=== PATIENT | male | born 1945 | race Caucasian/White ===

== ENCOUNTER → 2020-02-17 14:58 | Outpatient (ROUT) | payer OTHER, SELFPAY ==
[2020-02-17 16:35] LABS: Aspartate Aminotransferase 32 IU/L (17-59); BUN Creatinine Ratio 23.6 (6-22); Blood Urea Nitrogen 17 mg/dL (9-20); Calcium 9.5 mg/dL (8.4-10.2); Carbon Dioxide 25 mmol/L (22-32); Chloride 100 mmol/L (98-107); Cholesterol 118 mg/dL (140-199); Estimated Glomerular Filt Rate > 60.0 mL/min (>60); Glucose 91 mg/dL (80-110); HDL Cholesterol 62 mg/dL (40-60); HEMOLYSIS 20 (0-50); LDL Cholesterol Calculated 42 mg/dL (<100); Potassium 4.6 mmol/L (3.4-5.1); Sodium 135 mmol/L (137-145); Triglycerides 68 mg/dL (35-150)
== END ==
PROVIDERS: Visit Provider Internal Medicine
DX: I10 Essential (primary) hypertension (principal)
CPT/HCPCS: 80048; 80061; 84450

== ENCOUNTER → 2020-12-30 16:00 | Outpatient (CLI) | payer OTHER, SELFPAY ==
--- NOTE | 2020-12-30 | DI.RAD.S_ITS ---
PROCEDURE: XR ANKLE RT MIN 3V INDICATIONS: CRUSH INJURY TECHNIQUE: 3 views of the ankle were acquired. COMPARISON: None. FINDINGS: Bones: No fractures or dislocations. Ankle mortise is normally aligned. No suspicious bony lesions. Soft tissues: No tibiotalar joint effusion. Achilles tendon appears normal. IMPRESSION: No acute finding. Dictated by: Timi Uribe M.D. on 12/30/2020 at 16:44 Approved by: Timi Uribe M.D. on 12/30/2020 at 16:45
--- NOTE | 2020-12-30 | DI.RAD.S_ITS ---
PROCEDURE: XR TIBIA FUBULA RT 2V INDICATIONS: CRUSH INJURY TECHNIQUE: 2 views of the tibia and fibula were acquired. COMPARISON: None. FINDINGS: Bones: Four views of the tibia and fibula were performed and demonstrate no fracture or dislocation. Mild degenerative changes of the knee are seen Soft tissues: No suspicious soft tissue calcifications or masses. Vasculature has atherosclerotic calcifications. IMPRESSION: No acute abnormality of the right tibia or fibula. Dictated by: Moisés Aguirre M.D. on 12/30/2020 at 16:52 Approved by: Moisés Aguirre M.D. on 12/30/2020 at 16:54
== END ==
PROVIDERS: PCP Internal Medicine; Referring Provider Internal Medicine; Visit Provider Internal Medicine
DX: X58.XXXA Exposure to other specified factors, initial encounter (principal); S97.01XA Crushing injury of right ankle, initial encounter
CPT/HCPCS: 73590; 73610

== ENCOUNTER 2022-06-19 13:30 | Outpatient (RCR) | payer OTHER, SELFPAY ==
--- NOTE | 2022-05-22 17:00 | ST.OPIE ---
Visit Care Team Role Provider Type Krishna Reddy MD Family Provider Physician Primary Care Provider Specialty: Internal Medicine Address: [address] [place] [address], [address] Email: Alcides Huitron MD Attending Provider Physician Referring Provider Specialty: Ear, Nose, Throat Address: [address] [place] [address], [address] Email: [email or web address] Speech-Language Pathology Initial Evaluation AUTOMATED WEAVER Voice Resonance Evaluation Start: 05/22/22 15:04 Freq: Status: Active Protocol: Document 05/22/22 15:05 LNK (Rec: 05/22/22 15:35 LNK [id number]) Voice and Resonance Assessment Session Time Visit Start Time 13:30 Visit Stop Time 14:30 Total Visit Minutes 60 Visit Information Visit Number 1 Plan of Care Dates 05/22/22-08/20/22 Next Note Type Next Note Type Treatment Note Referral Referring Physician RICKEY Pelletier Reason for Referral voice/Parkinson's Disease Setting Setting Outpatient Care Patient History Patient History Pt was seen for a voice evaluation at the referral of Dr. Huitron, ENT. Pt c/o progressively weaker voice over the past year. He was recently diagnosed with Parkinson's Disease. Pt's reported that she frequently needs her to repeat himself as she cannot hear what he is saying. Vision Comments Wears glasses Occupational Status Occupation Status Retired Previous Therapy Previous Speech-Language Therapy No Oral Motor Assessment Source: [employer] (JEANNA). Oral-Motor Eval Completed No Subjective Subjective Pt was accompanied by his , Migdalia. - Laryngeal Performance S/Z Ratio Reduced Laryngeal Function Relative to Yes Respiration CAPE-V Overall Severity 41 Roughness 10 Breathiness 78 Strain 10 Pitch 20 Loudness 61 Normal Resonance? Yes Other Features Observed Flat Affect Maximum Phonation Time MPT Norms: Women (15-25) Men (25-35) Loudness (50-60 dB); Speaking Rate: Oral Reading of Sentences (190 Words Per Minute); Oral Reading of Paragraphs (160-170 WPM); Speaking Rate in Conversation (150-250 WPM) Maximum Phonation Time 11.37 Maximum Phonation Time Reduced Maximum Phonation Time Comments MPT was reduced relative to normal secondary to increased air flow leading to breathiness. Increased respiratory rate when speaking Jitter/Shimmer Norms: Jitter (Less than or equal to 1.040% - Frequency) Norms: Shimmer (Less than or equal to 3.810% - Amplitude) Jitter 1..6 Shimmer 9.0 Muscle Tension Assessment Muscle Tension Assessment None Tongue Base Tension Tongue Base Tension w/ Voicing Yes Tongue Base Tension at Rest Yes Breath Support Breath Support At Rest Mixed Breath Support Sustained Phonation Thoracic Breath Support Conversation Thoracic Speaks on Room Air Yes Postural Alignment Stance Balanced Shoulders Symmetrical Voice Pitch Range Norms: Women (100-300 Hz) Men (70-250 Hz) Fundamental Frequency Norms: Women (Mean: 225 Hz; Range: 155-334 Hz) Men ( Mean: 128 Hz; Range: 85-196 Hz) Voice Pitch Mildly Low Voice Loudness Moderately Soft/Quiet Voice Phonatory-based Quality Breathy Fundamental Frequency 120.5 Hz Paradoxical Vocal Fold Movement No Indications Resonance Other Observations Inadequate Breath Support Therapeutic Techniques Therapy Tactics Increase Loudness Other Tactics Recommend LSVT LOUD therapy program Findings Findings Mild-Moderate Impairment Voice/Resonance Assessment Assessment Pt presented with diminished vocal quality and volume, likely secondary to PD. Pt was able to increase loudness to audible level. His remarked she could hear him. Pt noted I feel like I am shouting, which ids typical for PD patients when compared to their habitual voice. Introduced LSVT LOUD and provided written information about thoe treatment program. Am recommending LSVT LOUD for the pt to better enable speaking volume. Am also recommending pt investigate Song Shine at the [facility]. Song Shine is a 8 week group vocal activity of singing and increasing the PD pt's intonation and vocal range, among other benefits (e .g., socialization). Encouraged the pt to contact the [facility] in [place] for Song Shine start date. Prognosis Rehabilitation Potential Good - Recommendations Treatment Recommended Yes: LSVT LOUD Therapy Recommendations As pt is relatively early in PD diagnosis, his prognosis for improvement is excellent. Short Term Goals Pt will enroll and participate in the LSVT LOUD program with certified [facility] AUTOMATED WEAVER. Medical referral to program needed to enroll. Patient/Caregiver Education Patient/Family Education Described results of evaluation,Patient Understanding,Family Understanding,Family Needs More Info
--- NOTE | 2022-05-22 17:02 | ST.OPPOC ---
Physical, Occupational & Speech Therapy At [facility] Visit Care Team Role Provider Type Krishna Reddy MD Family Provider Physician Primary Care Provider Address: [address] [place] [address], [address] Alcides Huitron MD Attending Provider Physician Referring Provider Address: [address] [place] [address], [address] Speech Pathology Plan of Care Plan of Care Dates 05/22/22-08/20/[address] Alcides Huitron, ENT Patient History Pt was seen for a voice evaluation at the referral of Dr. Huitron ENT. Pt c/o progressively weaker voice over the past year. He was recently diagnosed with Parkinson's Disease. Pt's reported that she frequently needs her to repeat himself as she cannot hear what he is saying. ASSESSMENT: Pt presented with diminished vocal quality and volume, likely secondary to PD. Pt was able to increase loudness to audible level. His remarked she could hear him. Pt noted I feel like I am shouting, which ids typical for PD patients when compared to their habitual voice. Introduced LSVT LOUD and provided written information about thoe treatment program. Am recommending LSVT LOUD for the pt to better enable speaking volume. Am also recommending pt investigate Song Shine at the [facility]. Song Shine is a 8 week group vocal activity of singing and increasing the PD pt's intonation and vocal range, among other benefits (e.g., socialization). Encouraged the pt to contact the [facility] in [place] for Song Shine start date. PLAN OF CARE: Pt will enroll and participate in the LSVT LOUD program with certified [facility] QUALITY ASSURANCE SUPERVISOR FINAL. Medical referral to program needed to enroll. As pt is relatively early in PD diagnosis, his prognosis for improvement is excellent. [ Electronically Signed by: Shyla Ventura, QUALITY ASSURANCE SUPERVISOR FINAL 05/22/22 6408 If you are in agreement with this Plan of Care, please return a signed and dated copy. I have reviewed this Plan of Care and certify that the skilled therapy services above are required to meet the patient?s needs. Physician Signature Date Printed Name and Credentials Clinical Instructor Signature Printed Name and Credentials
--- NOTE | 2022-06-19 16:16 | ST.OPTN ---
Visit Care Team Role Provider Type Krishna Reddy MD Family Provider Physician Primary Care Provider Address: [address] [place] [address], [address] Alcides Huitron MD Attending Provider Physician Referring Provider Address: [address] [place] [address], [address] ACTIVITY AIDE Treatment Note ACTIVITY AIDE Treatment Note Start: 05/22/22 15:04 Freq: Status: Active Protocol: Document 06/19/22 16:03 LNK (Rec: 06/19/22 16:16 LNK [id number]) Speech Pathology Treatment Note Session Time Visit Start Time 13:30 Visit Stop Time 14:25 Total Visit Minutes 55 Visit Information Visit Number 2 Plan of Care Dates 05/22/22-08/20/22 Setting Treatment Setting Outpatient Care Visit Type Note Type Treatment Note Next Note Type Next Note Type Treatment Note General Information Patient History Pt was seen for a voice evaluation at the referral of Dr. Huitron, ENT. Pt c/o progressively weaker voice over the past year. He was recently diagnosed with Parkinson's Disease. Pt's reported that she frequently needs her to repeat himself as she cannot hear what he is saying. Subjective Observations/Patient Presentation Pt presented with an improved vocal quality and volume My meds kicked in!, the pt noted . Significant change observed . Reviewed exercises prescribed last session. Chief Complaint(s) Voice Rehab Expectation/Goals: Patient Goals Maintain vocal quality and volume given PD diagnosis. Patient Knowledge/Awareness of ACTIVITY AIDE Role Excellent in Treatment Parent/Caretake Knowledge/Awareness of Excellent ACTIVITY AIDE Role in Treatment Patient/Caregiver Compliance with Home Good Exercise Program Objective Short Term Goals Pt will enroll and participate in the LSVT LOUD program with certified [facility] ACTIVITY AIDE. Medical referral to program needed to enroll. Treatment Activities Pt reported that partaking in LOUD or BIG would be financially difficult given copay of $30.00/session. Targeted breathing anatomy and physiology and abdominal breath control. With using abdominal breathing and activating abdominal muscles for MPT, pt increased MPT x6s. Reading aloud without abd breathing was slightly rogh and breathy. Using abd breading, the pt's vocal quality improved/cleared. Pt provided with exercises to target abd breathing and projection of speech while at home with his . pt assured that he does not sound like he is shouting to his or me. Assessment Patient Response to Treatment Good Impairments Identified Voice Progress Towards Goals Good Progress Assessment of Improvement Big change in pt's voice due to medication's effect. Patient/Caregiver Understanding Excellent Plan Comment f/u with pt in 4 weeks Length of Session 60 Minutes Therapeutic Contents Oral Motor Training,Voice Training Provided Patient/Caregiver Instruction Home Exercise Program,Plan of Care,Questions/Concerns
--- NOTE | 2022-09-19 17:01 | ST.OPDS ---
Visit Care Team Role Provider Type Krishna Reddy MD Family Provider Physician Primary Care Provider Address: [address] [place] [address], [id number] Alcides Huitron MD Attending Provider Physician Referring Provider Address: [address] [place] [address], [id number] CARBONATION EQUIPMENT TENDER Treatment Note CARBONATION EQUIPMENT TENDER Treatment Note Start: 05/22/22 15:04 Freq: Status: Active Protocol: Document 09/19/22 16:59 LNK (Rec: 09/19/22 17:00 LNK [id number]) Speech Pathology Treatment Note Setting Treatment Setting Outpatient Care Visit Type Note Type Discharge Summary General Information Patient History Pt was seen for a voice evaluation at the referral of Dr. Huitron, ENT. Pt c/o progressively weaker voice over the past year. He was recently diagnosed with Parkinson's Disease. Pt's reported that she frequently needs her to repeat himself as she cannot hear what he is saying. Subjective Observations/Patient Presentation Pt presented with an improved vocal quality and volume My meds kicked in!, the pt noted . Significant change observed . Reviewed exercises prescribed last session. Rehab Expectation/Goals: Patient Goals Maintain vocal quality and volume given PD diagnosis. Objective Treatment Activities pt has not been seen for therapy since 06/19/22. Will discharge at this time
== END 2022-09-20 11:45 | disposition home or self-care (01) ==
LOC: SP 13:30
PROVIDERS: Absent Provider Internal Medicine; Family Provider Internal Medicine; PCP Internal Medicine; Referring Provider Otolaryngology; Visit Provider Otolaryngology
DX: R49.0 Dysphonia (principal); G20 Parkinson's disease
CPT/HCPCS: 92507; 92520; 92524

== ENCOUNTER 2022-09-17 14:30 | Outpatient (RCR) | payer OTHER, SELFPAY ==
--- NOTE | 2022-06-29 16:00 | PT.OIE ---
Current Diagnoses Parkinson's disease (06/29/22) Unsteadiness on feet (06/29/22) Other abnormalities of gait and mobility (06/29/22) Repeated falls (06/29/22) Visit Care Team Role Provider Type Krishna Reddy MD Family Provider Physician Primary Care Provider Specialty: Internal Medicine Address: [address] [place] [address], [address] Email: Alcides Huitron MD Attending Provider Physician Referring Provider Specialty: Ear, Nose, Throat Address: [address] [place] [address], [address] Email: [email or web address] Physical Therapy Initial Evaluation PT-OP-A Visit Information Start: 06/29/22 16:47 Freq: Status: Active Protocol: Document 06/29/22 15:15 DCW (Rec: 06/29/22 16:53 DCW [id number]) Out-Patient Physical Therapy Visit Information Visit Information Visit Type Initial Evaluation Visit Start Time 15:15 Visit Stop Time 16:00 Total Visit Minutes 45 Visit Number 1 Number of PAPER HANGER Visits 0 Evaluation Information Evaluation Date 06/29/22 PT-OP-B Current Condition Start: 06/29/22 16:47 Freq: Status: Active Protocol: Document 06/29/22 15:15 DCW (Rec: 07/02/22 09:40 DCW [id number]) Current Condition History of Current Condition Onset Date Multi-year history Current Complaints Falls, imbalance, weakness History of Current Condition Pt is a 76 year old male presenting with a multi-year history of imbalance, falls, and weakness who is three months s/p official diagnosis of Parkinson's disease. Pt reports he has fallen five times over the last year, four of which have been within the past three months, but notes that none of the falls have been serious. Pt uses SPC and FWW for ambulation most of the time, but finds them annoying, tries to get around without it, but uses his ADs for any kind of distance. Pt reports he was struggling both with dizziness and initiating movement, but has benefitted greatly from starting L-dopa. Treatment Goals Patient/Caregiver Goals I want to get more strength in my legs and get better balance. PT-OP-C Subjective Start: 06/29/22 16:47 Freq: Status: Active Protocol: Document 06/29/22 15:15 DCW (Rec: 06/29/22 16:53 DCW [id number]) OP-PT Subjective Patient Comments Patient Comments The cane is annoying, so I try to get along without it. Patient Reported Progress Same Patient Questionnaires Dizziness Handicap Inventory DHI Score 68% PT-OP-D Balance Start: 06/29/22 16:47 Freq: Status: Active Protocol: Document 06/29/22 15:15 DCW (Rec: 06/29/22 16:53 DCW [id number]) OP-PT Balance Assessment Sitting Balance Static Sitting Balance Ability Normal Dynamic Sitting Balance Ability Normal Standing Balance Static Standing Balance Ability Fair Dynamic Standing Balance Ability Fair Balance Tests Rodriguez Balance Test Rodriguez Balance Test Score 36/56 Rodriguez Impairment Rating 20 to 39% Impaired (Score 34- 44) Rodriguez Balance Assessment Evaluation Sitting to Standing Ability Independent w/Hands Unsupported Stance Supervision- 2 minutes Sitting Unsupported, Feet on Floor Safely- 2 minutes Standing to Sitting Ability Assist, Use Legs on Chair Transfer Ability Safely, Hand Use Unsupported Stance- Eyes Closed 3 seconds Unsupported Stance- Eyes Open Independent, <30 seconds Reaching Forward Standing Safely, 5 inches Pick- Up Object From Floor Supervision Look Behind Shoulder - Standing Turns Sideways Only Turning 360 Degrees Turns slowly, but safely Unsupported Stance, Alternating Feet on 4 Steps w/Supervision Stair Unsupported Tandem Stance Holds Tandem- 30 seconds Unilateral Leg Stance Lifts Leg/Holds > 3 secs Total Score Rodriguez Total Score (out of 56 points) 36 Rodriguez Impairment Rating 20 to 39% Impaired (Score 34- 44) Ellis Fall Scale Copyright Permission PT-OP-E Functional Tests Start: 06/29/22 16:47 Freq: Status: Active Protocol: Document 06/29/22 15:15 DCW (Rec: 06/29/22 16:53 DCW [id number]) Functional Tests Dynamic Gait Index (DGI) Score 17/24 DGI Impairment Rating 20 to <40% Impaired (Score 15- 19) Timed Up and Go (TUG) Score 22.16 Comments Three-trial average (26.31, 21 .67, 18.49) TUG Impairment Rating 100% Impaired (Score 20) PT-OP-M Strength Start: 06/29/22 16:47 Freq: Status: Active Protocol: Document 06/29/22 15:15 DCW (Rec: 06/29/22 16:53 DCW [id number]) Hip Strength Hip Manual Muscle Testing Right Flexion (L2) 4 Good Extension (S1) 4- Good- Abduction 4- Good- Adduction 4 Good External Rotation 4 Good Internal Rotation 4 Good Left Flexion (L2) 4- Good- Extension (S1) 4+ Good+ Abduction 4- Good- External Rotation 4 Good Internal Rotation 4 Good Knee Strength Knee Manual Muscle Testing Right Flexion (S2) 4 Good Extension (L3) 4 Good Left Flexion (S2) 4 Good Extension (L3) 4 Good Ankle/Foot Strength Ankle and Foot Manual Muscle Testing Right Dorsiflexion (L4) 4 Good Left Dorsiflexion (L4) 4 Good PT-OP-T Assessment and Plan Start: 06/29/22 16:47 Freq: Status: Active Protocol: Document 06/29/22 15:15 DCW (Rec: 07/02/22 09:40 DCW [id number]) Physical Therapy Assessment Rehab Potential Rehabilitation Potential Good Evaluation Complexity Number of Personal Factors/Comorbidities 3 or More Number of Body Systems Impaired 3 Clinical Presentation at Evaluation Unstable Impairments Impairments Activity Tolerance,Balance, Functional Activities, Functional Mobility,Gait, Posture,Soft Tissue Mobility, Strength Other Concerns Fall Risk Yes, per Rodriguez (36/56) and DGI (17/24) scores Goals Three Impairment Pt scores a 22.16 on the TUG Vp [employer] [place] Goal (LTG) Pt to decrease score on TUG to at most 15 in order to demonstrate increased safety with functional mobility. LTG Duration 09/27/22 Two Impairment Increased falls risk per Rodriguez (36/56) and DGI (17/24) scores Senior Living Goal (LTG) Pt to increase Rodriguez score by at least 10 points to 46/56 in order to demonstrate a decreased risk of falling. LTG Duration 09/27/22 One Impairment Pt does not have an appropriate home exercise program Short Term Goal (STG) Pt to be independent and compliant with an appropriate HEP STG Duration 08/13/22 Assessment Summary Assessment Pt presents with signs and symptoms consistent with referring diagnosis. Pt displays increased falls risk, per Rodriguez, DGI, and TUG scoring, as well as bilateral LE weakness, resulting in decreased functional mobility. Pt hoping to improve balance enough that he can decrease reliance on ADs. Pt should benefit from skilled therapy focusing on gait training, balance training, LE strengthening, safety awareness, and transfers. Spent some time discussing Parkinson's specific rehabilitation, like LSVT BIG, if pt does not respond as expected to skilled therapeutic intervention. Progressive nature of Parkinson's disease is likely pt's biggest limiting factor for rehabilitation. Physical Therapy Plan Frequency and Duration Frequency of Treatment 2x/Week Plan of Care Start Date 06/29/22 Plan of Care End Date 09/27/22 Therapeutic Interventions Therapeutic Interventions Balance Training,Coordination Training,Gait Training,Home Exercise Program,Manual Therapy,Neuromuscular Re- education,Patient/Caregiver Education,Self-Care/Home Management,Soft Tissue Mobilization,Therapeutic Activities,Therapeutic Exercises Next Visit Focus/Plan Next Note Type Treatment Note Next Visit Plan Strengthening, balance and gait training.
--- NOTE | 2022-06-29 16:01 | PT.OPPOC ---
Physical, Occupational & Speech Therapy At [facility] Current Diagnoses Parkinson's disease (06/29/22) Unsteadiness on feet (06/29/22) Other abnormalities of gait and mobility (06/29/22) Repeated falls (06/29/22) Visit Care Team Role Provider Type Krishna Reddy MD Family Provider Physician Primary Care Provider Specialty: Internal Medicine Address: [address] [place] [address], [address] Email: Alcides Huitron MD Attending Provider Physician Referring Provider Specialty: Ear, Nose, Throat Address: [address] [place] [address], [address] Email: [email or web address] Plan Of Care PT-OP-T Assessment and Plan Start: 06/29/22 16:47 Freq: Status: Active Protocol: Document 06/29/22 15:15 DCW (Rec: 07/02/22 09:40 DCW [id number]) Physical Therapy Assessment Rehab Potential Rehabilitation Potential Good Evaluation Complexity Number of Personal Factors/Comorbidities 3 or More Number of Body Systems Impaired 3 Clinical Presentation at Evaluation Unstable Impairments Impairments Activity Tolerance,Balance, Functional Activities, Functional Mobility,Gait, Posture,Soft Tissue Mobility, Strength Other Concerns Fall Risk Yes, per Rodriguez (36/56) and DGI (17/24) scores Goals Three Impairment Pt scores a 22.16 on the TUG Planer Operator / Grader Goal (LTG) Pt to decrease score on TUG to at most 15 in order to demonstrate increased safety with functional mobility. LTG Duration 09/27/22 Two Impairment Increased falls risk per Rodriguez (36/56) and DGI (17/24) scores Detention Goal (LTG) Pt to increase Rodriguez score by at least 10 points to 46/56 in order to demonstrate a decreased risk of falling. LTG Duration 09/27/22 One Impairment Pt does not have an appropriate home exercise program Short Term Goal (STG) Pt to be independent and compliant with an appropriate HEP STG Duration 08/13/22 Assessment Summary Assessment Pt presents with signs and symptoms consistent with referring diagnosis. Pt displays increased falls risk, per Rodriguez, DGI, and TUG scoring, as well as bilateral LE weakness, resulting in decreased functional mobility. Pt hoping to improve balance enough that he can decrease reliance on ADs. Pt should benefit from skilled therapy focusing on gait training, balance training, LE strengthening, safety awareness, and transfers. Spent some time discussing Parkinson's specific rehabilitation, like LSVT BIG, if pt does not respond as expected to skilled therapeutic intervention. Progressive nature of Parkinson's disease is likely pt's biggest limiting factor for rehabilitation. Physical Therapy Plan Frequency and Duration Frequency of Treatment 2x/Week Plan of Care Start Date 06/29/22 Plan of Care End Date 09/27/22 Therapeutic Interventions Therapeutic Interventions Balance Training,Coordination Training,Gait Training,Home Exercise Program,Manual Therapy,Neuromuscular Re- education,Patient/Caregiver Education,Self-Care/Home Management,Soft Tissue Mobilization,Therapeutic Activities,Therapeutic Exercises Next Visit Focus/Plan Next Note Type Treatment Note Next Visit Plan Strengthening, balance and gait training. Plan of Care Dates Plan of Care Start Date 06/29/22 Plan of Care End Date 09/27/22 Electronically Signed by: Nito Guzman, PT 07/02/22 0940 If you are in agreement with this Plan of Care, please return a signed and dated copy. I have reviewed this Plan of Care and certify that the skilled therapy services above are required to meet the patient?s needs. Physician Signature Date Printed Name and Credentials Clinical Instructor Signature Printed Name and Credentials
--- NOTE | 2022-07-02 15:55 | PT.OTN ---
Current Diagnoses Parkinson's disease (07/02/22) Unsteadiness on feet (07/02/22) Other abnormalities of gait and mobility (07/02/22) Repeated falls (07/02/22) Physical Therapy Treatment Note PT-OP-A Visit Information Start: 06/29/22 16:47 Freq: Status: Active Protocol: Document 07/02/22 15:05 DCW (Rec: 07/02/22 15:55 DCW [id number]) Out-Patient Physical Therapy Visit Information Visit Information Visit Type Treatment Note Visit Start Time 15:05 Visit Stop Time 15:50 Total Visit Minutes 45 Visit Number 2 Number of STREETCAR MOTORMAN Visits 0 Evaluation Information Evaluation Date 06/29/22 PT-OP-B Current Condition Start: 06/29/22 16:47 Freq: Status: Active Protocol: Document 06/29/22 15:15 DCW (Rec: 07/02/22 09:40 DCW [id number]) Current Condition History of Current Condition Onset Date Multi-year history Current Complaints Falls, imbalance, weakness History of Current Condition Pt is a 76 year old male presenting with a multi-year history of imbalance, falls, and weakness who is three months s/p official diagnosis of Parkinson's disease. Pt reports he has fallen five times over the last year, four of which have been within the past three months, but notes that none of the falls have been serious. Pt uses SPC and FWW for ambulation most of the time, but finds them annoying, tries to get around without it, but uses his ADs for any kind of distance. Pt reports he was struggling both with dizziness and initiating movement, but has benefitted greatly from starting L-dopa. Treatment Goals Patient/Caregiver Goals I want to get more strength in my legs and get better balance. PT-OP-C Subjective Start: 06/29/22 16:47 Freq: Status: Active Protocol: Document 07/02/22 15:05 DCW (Rec: 07/02/22 15:55 DCW [id number]) OP-PT Subjective Patient Comments Patient Comments Pt reports he is doing fairly well today. PT-OP-D Balance Start: 06/29/22 16:47 Freq: Status: Active Protocol: Document 06/29/22 15:15 DCW (Rec: 06/29/22 16:53 DCW [id number]) OP-PT Balance Assessment Sitting Balance Static Sitting Balance Ability Normal Dynamic Sitting Balance Ability Normal Standing Balance Static Standing Balance Ability Fair Dynamic Standing Balance Ability Fair Balance Tests Rodriguez Balance Test Rodriguez Balance Test Score 36/56 Rodriguez Impairment Rating 20 to 39% Impaired (Score 34- 44) Rodriguez Balance Assessment Evaluation Sitting to Standing Ability Independent w/Hands Unsupported Stance Supervision- 2 minutes Sitting Unsupported, Feet on Floor Safely- 2 minutes Standing to Sitting Ability Assist, Use Legs on Chair Transfer Ability Safely, Hand Use Unsupported Stance- Eyes Closed 3 seconds Unsupported Stance- Eyes Open Independent, <30 seconds Reaching Forward Standing Safely, 5 inches Pick- Up Object From Floor Supervision Look Behind Shoulder - Standing Turns Sideways Only Turning 360 Degrees Turns slowly, but safely Unsupported Stance, Alternating Feet on 4 Steps w/Supervision Stair Unsupported Tandem Stance Holds Tandem- 30 seconds Unilateral Leg Stance Lifts Leg/Holds > 3 secs Total Score Rodriguez Total Score (out of 56 points) 36 Rodriguez Impairment Rating 20 to 39% Impaired (Score 34- 44) Ellis Fall Scale Copyright Permission PT-OP-E Functional Tests Start: 06/29/22 16:47 Freq: Status: Active Protocol: Document 06/29/22 15:15 DCW (Rec: 06/29/22 16:53 DCW [id number]) Functional Tests Dynamic Gait Index (DGI) Score 17/24 DGI Impairment Rating 20 to <40% Impaired (Score 15- 19) Timed Up and Go (TUG) Score 22.16 Comments Three-trial average (26.31, 21 .67, 18.49) TUG Impairment Rating 100% Impaired (Score 20) PT-OP-M Strength Start: 06/29/22 16:47 Freq: Status: Active Protocol: Document 06/29/22 15:15 DCW (Rec: 06/29/22 16:53 DCW [id number]) Hip Strength Hip Manual Muscle Testing Right Flexion (L2) 4 Good Extension (S1) 4- Good- Abduction 4- Good- Adduction 4 Good External Rotation 4 Good Internal Rotation 4 Good Left Flexion (L2) 4- Good- Extension (S1) 4+ Good+ Abduction 4- Good- External Rotation 4 Good Internal Rotation 4 Good Knee Strength Knee Manual Muscle Testing Right Flexion (S2) 4 Good Extension (L3) 4 Good Left Flexion (S2) 4 Good Extension (L3) 4 Good Ankle/Foot Strength Ankle and Foot Manual Muscle Testing Right Dorsiflexion (L4) 4 Good Left Dorsiflexion (L4) 4 Good PT-OP-Q Treatments Start: 06/29/22 16:47 Freq: Status: Active Protocol: Document 07/02/22 15:05 DCW (Rec: 07/02/22 15:55 DCW [id number]) Cardio Equipment Recumbent Elliptical (Biodex) Duration (Minutes) 4 Resistance 4 Seat Position 8 Gym Equipment Shuttle Recovery Unilateral Squats Resistance 37# Shuttle Recovery Platform Stable Bilateral Squats Resistance 62# Shuttle Recovery Platform Stable Therapeutic Exercises Sitting Exercises LAQ Sitting Exercise Name LAQ Side bilateral Resistance 5# Standing Exercises Hip Extension Standing Exercise Name Hip Extension Side bilateral Resistance Red Hip Abduction Standing Exercise Name Hip abduction Side bilateral Resistance Red Toe-taps Standing Exercise Name Toe-taps Side bilateral Resistance 5# Equipment Used 6 step Neuro Re-Education Treatment Balance Activities Tilt Board Details Tilt board Comments DF/PF, Lateral SLS Details SLS Equipment // bars Tandem Stance Details Tandem Stance Equipment // bars Foam Stance Details Foam stance Surface Blue foam Comments EO/EC PT-OP-T Assessment and Plan Start: 06/29/22 16:47 Freq: Status: Active Protocol: Document 07/02/22 15:05 DCW (Rec: 07/02/22 15:55 DCW [id number]) Physical Therapy Assessment Impairments Impairments Activity Tolerance,Balance, Functional Activities, Functional Mobility,Gait, Posture,Soft Tissue Mobility, Strength Goals Three Impairment Pt scores a 22.16 on the TUG Custodial Goal (LTG) Pt to decrease score on TUG to at most 15 in order to demonstrate increased safety with functional mobility. LTG Duration 09/27/22 Two Impairment Increased falls risk per Rodriguez (36/56) and DGI (17/24) scores Dough Mixer Operator Goal (LTG) Pt to increase Rodriguez score by at least 10 points to 46/56 in order to demonstrate a decreased risk of falling. LTG Duration 09/27/22 One Impairment Pt does not have an appropriate home exercise program Short Term Goal (STG) Pt to be independent and compliant with an appropriate HEP STG Duration 08/13/22 Assessment Summary Assessment Pt tolerated treatment very well today, agreeable to HEP for LE strengthening at this time. Still feels like he can ambulate fine without an assistive device, but still uses SPC due to 's request . Physical Therapy Plan Frequency and Duration Frequency of Treatment 2x/Week Plan of Care Start Date 06/29/22 Plan of Care End Date 09/27/22 Therapeutic Interventions Therapeutic Interventions Balance Training,Coordination Training,Gait Training,Home Exercise Program,Manual Therapy,Neuromuscular Re- education,Patient/Caregiver Education,Self-Care/Home Management,Soft Tissue Mobilization,Therapeutic Activities,Therapeutic Exercises Next Visit Focus/Plan Next Note Type Treatment Note Next Visit Plan Strengthening, balance and gait training.
--- NOTE | 2022-07-06 15:59 | PT.OTN ---
Current Diagnoses Parkinson's disease (07/06/22) Unsteadiness on feet (07/06/22) Other abnormalities of gait and mobility (07/06/22) Repeated falls (07/06/22) Physical Therapy Treatment Note PT-OP-A Visit Information Start: 06/29/22 16:47 Freq: Status: Active Protocol: Document 07/06/22 15:15 DCW (Rec: 07/06/22 15:55 DCW [id number]) Out-Patient Physical Therapy Visit Information Visit Information Visit Type Treatment Note Visit Start Time 15:15 Visit Stop Time 16:00 Total Visit Minutes 45 Visit Number 3 Number of SENIOR DENTIST Visits 0 Evaluation Information Evaluation Date 06/29/22 PT-OP-B Current Condition Start: 06/29/22 16:47 Freq: Status: Active Protocol: Document 06/29/22 15:15 DCW (Rec: 07/02/22 09:40 DCW [id number]) Current Condition History of Current Condition Onset Date Multi-year history Current Complaints Falls, imbalance, weakness History of Current Condition Pt is a 76 year old male presenting with a multi-year history of imbalance, falls, and weakness who is three months s/p official diagnosis of Parkinson's disease. Pt reports he has fallen five times over the last year, four of which have been within the past three months, but notes that none of the falls have been serious. Pt uses SPC and FWW for ambulation most of the time, but finds them annoying, tries to get around without it, but uses his ADs for any kind of distance. Pt reports he was struggling both with dizziness and initiating movement, but has benefitted greatly from starting L-dopa. Treatment Goals Patient/Caregiver Goals I want to get more strength in my legs and get better balance. PT-OP-C Subjective Start: 06/29/22 16:47 Freq: Status: Active Protocol: Document 07/06/22 15:15 DCW (Rec: 07/06/22 15:55 DCW [id number]) OP-PT Subjective Patient Comments Patient Comments Pt was fairly fatigued for a full two days following his last session. PT-OP-D Balance Start: 06/29/22 16:47 Freq: Status: Active Protocol: Document 06/29/22 15:15 DCW (Rec: 06/29/22 16:53 DCW [id number]) OP-PT Balance Assessment Sitting Balance Static Sitting Balance Ability Normal Dynamic Sitting Balance Ability Normal Standing Balance Static Standing Balance Ability Fair Dynamic Standing Balance Ability Fair Balance Tests Rodriguez Balance Test Rodriguez Balance Test Score 36/56 Rodriguez Impairment Rating 20 to 39% Impaired (Score 34- 44) Rodriguez Balance Assessment Evaluation Sitting to Standing Ability Independent w/Hands Unsupported Stance Supervision- 2 minutes Sitting Unsupported, Feet on Floor Safely- 2 minutes Standing to Sitting Ability Assist, Use Legs on Chair Transfer Ability Safely, Hand Use Unsupported Stance- Eyes Closed 3 seconds Unsupported Stance- Eyes Open Independent, <30 seconds Reaching Forward Standing Safely, 5 inches Pick- Up Object From Floor Supervision Look Behind Shoulder - Standing Turns Sideways Only Turning 360 Degrees Turns slowly, but safely Unsupported Stance, Alternating Feet on 4 Steps w/Supervision Stair Unsupported Tandem Stance Holds Tandem- 30 seconds Unilateral Leg Stance Lifts Leg/Holds > 3 secs Total Score Rodriguez Total Score (out of 56 points) 36 Rodriguez Impairment Rating 20 to 39% Impaired (Score 34- 44) Ellis Fall Scale Copyright Permission PT-OP-E Functional Tests Start: 06/29/22 16:47 Freq: Status: Active Protocol: Document 06/29/22 15:15 DCW (Rec: 06/29/22 16:53 [facility] [id number]) Functional Tests Dynamic Gait Index (DGI) Score 17/24 DGI Impairment Rating 20 to <40% Impaired (Score 15- 19) Timed Up and Go (TUG) Score 22.16 Comments Three-trial average (26.31, 21 .67, 18.49) TUG Impairment Rating 100% Impaired (Score 20) PT-OP-M Strength Start: 06/29/22 16:47 Freq: Status: Active Protocol: Document 06/29/22 15:15 DCW (Rec: 06/29/22 16:53 [facility] [id number]) Hip Strength Hip Manual Muscle Testing Right Flexion (L2) 4 Good Extension (S1) 4- Good- Abduction 4- Good- Adduction 4 Good External Rotation 4 Good Internal Rotation 4 Good Left Flexion (L2) 4- Good- Extension (S1) 4+ Good+ Abduction 4- Good- External Rotation 4 Good Internal Rotation 4 Good Knee Strength Knee Manual Muscle Testing Right Flexion (S2) 4 Good Extension (L3) 4 Good Left Flexion (S2) 4 Good Extension (L3) 4 Good Ankle/Foot Strength Ankle and Foot Manual Muscle Testing Right Dorsiflexion (L4) 4 Good Left Dorsiflexion (L4) 4 Good PT-OP-Q Treatments Start: 06/29/22 16:47 Freq: Status: Active Protocol: Document 07/06/22 15:15 DCW (Rec: 07/06/22 15:55 DCW [id number]) Cardio Equipment Recumbent Elliptical (Biodex) Duration (Minutes) 4 Resistance 6 Seat Position 8 Gym Equipment Shuttle Recovery Unilateral Squats Resistance 37# Shuttle Recovery Platform Stable Bilateral Squats Resistance 62# Shuttle Recovery Platform Stable Shuttle Balance Red Details WBOS, Staggered Neuro Re-Education Treatment Balance Activities Hurdles Details Hurdles/Foam Equipment // bars SLS Details SLS Equipment // bars PT-OP-T Assessment and Plan Start: 06/29/22 16:47 Freq: Status: Active Protocol: Document 07/06/22 15:15 DCW (Rec: 07/06/22 15:55 DCW [id number]) Physical Therapy Assessment Impairments Impairments Activity Tolerance,Balance, Functional Activities, Functional Mobility,Gait, Posture,Soft Tissue Mobility, Strength Goals Three Impairment Pt scores a 22.16 on the TUG Manager Utilization Review Goal (LTG) Pt to decrease score on TUG to at most 15 in order to demonstrate increased safety with functional mobility. LTG Duration 09/27/22 Two Impairment Increased falls risk per Rodriguez (36/56) and DGI (17/24) scores Manager Utilization Review Goal (LTG) Pt to increase Rodriguez score by at least 10 points to 46/56 in order to demonstrate a decreased risk of falling. LTG Duration 09/27/22 One Impairment Pt does not have an appropriate home exercise program Short Term Goal (STG) Pt to be independent and compliant with an appropriate HEP STG Duration 08/13/22 Assessment Summary Assessment Attempted to make today's visit a little easier to improve pt 's ability to recover afterward, follow-up with pt next visit to determine his response. Physical Therapy Plan Frequency and Duration Frequency of Treatment 2x/Week Plan of Care Start Date 06/29/22 Plan of Care End Date 09/27/22 Therapeutic Interventions Therapeutic Interventions Balance Training,Coordination Training,Gait Training,Home Exercise Program,Manual Therapy,Neuromuscular Re- education,Patient/Caregiver Education,Self-Care/Home Management,Soft Tissue Mobilization,Therapeutic Activities,Therapeutic Exercises Next Visit Focus/Plan Next Note Type Treatment Note Next Visit Plan Strengthening, balance and gait training.
--- NOTE | 2022-07-10 16:54 | PT.OTN ---
Current Diagnoses Parkinson's disease (07/10/22) Unsteadiness on feet (07/10/22) Other abnormalities of gait and mobility (07/10/22) Repeated falls (07/10/22) Physical Therapy Treatment Note PT-OP-A Visit Information Start: 06/29/22 16:47 Freq: Status: Active Protocol: Document 07/10/22 16:00 DCW (Rec: 07/10/22 16:54 DCW [id number]) Out-Patient Physical Therapy Visit Information Visit Information Visit Type Treatment Note Visit Start Time 16:00 Visit Stop Time 16:45 Total Visit Minutes 45 Visit Number 4 Number of ELECTRIC VEHICLE ELECTRICIAN Visits 0 Evaluation Information Evaluation Date 06/29/22 PT-OP-B Current Condition Start: 06/29/22 16:47 Freq: Status: Active Protocol: Document 06/29/22 15:15 DCW (Rec: 07/02/22 09:40 DCW [id number]) Current Condition History of Current Condition Onset Date Multi-year history Current Complaints Falls, imbalance, weakness History of Current Condition Pt is a 76 year old male presenting with a multi-year history of imbalance, falls, and weakness who is three months s/p official diagnosis of Parkinson's disease. Pt reports he has fallen five times over the last year, four of which have been within the past three months, but notes that none of the falls have been serious. Pt uses SPC and FWW for ambulation most of the time, but finds them annoying, tries to get around without it, but uses his ADs for any kind of distance. Pt reports he was struggling both with dizziness and initiating movement, but has benefitted greatly from starting L-dopa. Treatment Goals Patient/Caregiver Goals I want to get more strength in my legs and get better balance. PT-OP-C Subjective Start: 06/29/22 16:47 Freq: Status: Active Protocol: Document 07/10/22 16:00 DCW (Rec: 07/10/22 16:54 DCW [id number]) OP-PT Subjective Patient Comments Patient Comments Pt reports last visit felt just right afterward, was not fatigued for multiple days afterward, but also felt like he got quite a good workout. PT-OP-D Balance Start: 06/29/22 16:47 Freq: Status: Active Protocol: Document 06/29/22 15:15 DCW (Rec: 06/29/22 16:53 [facility] [id number]) OP-PT Balance Assessment Sitting Balance Static Sitting Balance Ability Normal Dynamic Sitting Balance Ability Normal Standing Balance Static Standing Balance Ability Fair Dynamic Standing Balance Ability Fair Balance Tests Rodriguez Balance Test Rodriguez Balance Test Score 36/56 Rodriguez Impairment Rating 20 to 39% Impaired (Score 34- 44) Rodriguez Balance Assessment Evaluation Sitting to Standing Ability Independent w/Hands Unsupported Stance Supervision- 2 minutes Sitting Unsupported, Feet on Floor Safely- 2 minutes Standing to Sitting Ability Assist, Use Legs on Chair Transfer Ability Safely, Hand Use Unsupported Stance- Eyes Closed 3 seconds Unsupported Stance- Eyes Open Independent, <30 seconds Reaching Forward Standing Safely, 5 inches Pick- Up Object From Floor Supervision Look Behind Shoulder - Standing Turns Sideways Only Turning 360 Degrees Turns slowly, but safely Unsupported Stance, Alternating Feet on 4 Steps w/Supervision Stair Unsupported Tandem Stance Holds Tandem- 30 seconds Unilateral Leg Stance Lifts Leg/Holds > 3 secs Total Score Rodriguez Total Score (out of 56 points) 36 Rodriguez Impairment Rating 20 to 39% Impaired (Score 34- 44) Ellis Fall Scale Copyright Permission PT-OP-E Functional Tests Start: 06/29/22 16:47 Freq: Status: Active Protocol: Document 06/29/22 15:15 DCW (Rec: 06/29/22 16:53 [facility] [id number]) Functional Tests Dynamic Gait Index (DGI) Score 17/24 DGI Impairment Rating 20 to <40% Impaired (Score 15- 19) Timed Up and Go (TUG) Score 22.16 Comments Three-trial average (26.31, 21 .67, 18.49) TUG Impairment Rating 100% Impaired (Score 20) PT-OP-M Strength Start: 06/29/22 16:47 Freq: Status: Active Protocol: Document 06/29/22 15:15 DCW (Rec: 06/29/22 16:53 [facility] [id number]) Hip Strength Hip Manual Muscle Testing Right Flexion (L2) 4 Good Extension (S1) 4- Good- Abduction 4- Good- Adduction 4 Good External Rotation 4 Good Internal Rotation 4 Good Left Flexion (L2) 4- Good- Extension (S1) 4+ Good+ Abduction 4- Good- External Rotation 4 Good Internal Rotation 4 Good Knee Strength Knee Manual Muscle Testing Right Flexion (S2) 4 Good Extension (L3) 4 Good Left Flexion (S2) 4 Good Extension (L3) 4 Good Ankle/Foot Strength Ankle and Foot Manual Muscle Testing Right Dorsiflexion (L4) 4 Good Left Dorsiflexion (L4) 4 Good PT-OP-Q Treatments Start: 06/29/22 16:47 Freq: Status: Active Protocol: Document 07/10/22 16:00 DCW (Rec: 07/10/22 16:54 DCW [id number]) Cardio Equipment Recumbent Elliptical (Biodex) Duration (Minutes) 5 Resistance 4 Seat Position 9 Gym Equipment Shuttle Recovery Unilateral Squats Resistance 37# Shuttle Recovery Platform Stable Reps/Time x20 Bilateral Squats Resistance 62# Shuttle Recovery Platform Stable Reps/Time x20 Shuttle Balance Red Details WBOS, Staggered, Lateral weight shift Neuro Re-Education Treatment Balance Activities Hurdles Details Hurdles/Foam Equipment // bars Comments Staggered, Tandem, Side- stepping SLS Details SLS Equipment // bars PT-OP-T Assessment and Plan Start: 06/29/22 16:47 Freq: Status: Active Protocol: Document 07/10/22 16:00 DCW (Rec: 07/10/22 16:54 DCW [id number]) Physical Therapy Assessment Impairments Impairments Activity Tolerance,Balance, Functional Activities, Functional Mobility,Gait, Posture,Soft Tissue Mobility, Strength Goals Three Impairment Pt scores a 22.16 on the TUG Mobile Homes Repairer Goal (LTG) Pt to decrease score on TUG to at most 15 in order to demonstrate increased safety with functional mobility. LTG Duration 09/27/22 Two Impairment Increased falls risk per Rodriguez (36/56) and DGI (17/24) scores Mobile Homes Repairer Goal (LTG) Pt to increase Rodriguez score by at least 10 points to 46/56 in order to demonstrate a decreased risk of falling. LTG Duration 09/27/22 One Impairment Pt does not have an appropriate home exercise program Short Term Goal (STG) Pt to be independent and compliant with an appropriate HEP STG Duration 08/13/22 Assessment Summary Assessment Pt reporting fairly significant fatigue again following his PT session, but admits it is something he needs. Discussed additional HEP activities for him to perform, including chair squats and side-stepping along counter top. Physical Therapy Plan Frequency and Duration Frequency of Treatment 2x/Week Plan of Care Start Date 06/29/22 Plan of Care End Date 09/27/22 Therapeutic Interventions Therapeutic Interventions Balance Training,Coordination Training,Gait Training,Home Exercise Program,Manual Therapy,Neuromuscular Re- education,Patient/Caregiver Education,Self-Care/Home Management,Soft Tissue Mobilization,Therapeutic Activities,Therapeutic Exercises Next Visit Focus/Plan Next Note Type Treatment Note Next Visit Plan Strengthening, balance and gait training.
--- NOTE | 2022-07-17 16:02 | PT.OTN ---
Current Diagnoses Parkinson's disease (07/17/22) Unsteadiness on feet (07/17/22) Other abnormalities of gait and mobility (07/17/22) Repeated falls (07/17/22) Physical Therapy Treatment Note PT-OP-A Visit Information Start: 06/29/22 16:47 Freq: Status: Active Protocol: Document 07/17/22 15:19 DCW (Rec: 07/17/22 16:02 DCW [id number]) Out-Patient Physical Therapy Visit Information Visit Information Visit Type Treatment Note Visit Start Time 15:19 Visit Stop Time 16:00 Total Visit Minutes 41 Visit Number 5 Number of CARBONIZER TESTER Visits 0 Evaluation Information Evaluation Date 06/29/22 PT-OP-B Current Condition Start: 06/29/22 16:47 Freq: Status: Active Protocol: Document 06/29/22 15:15 DCW (Rec: 07/02/22 09:40 DCW [id number]) Current Condition History of Current Condition Onset Date Multi-year history Current Complaints Falls, imbalance, weakness History of Current Condition Pt is a 76 year old male presenting with a multi-year history of imbalance, falls, and weakness who is three months s/p official diagnosis of Parkinson's disease. Pt reports he has fallen five times over the last year, four of which have been within the past three months, but notes that none of the falls have been serious. Pt uses SPC and FWW for ambulation most of the time, but finds them annoying, tries to get around without it, but uses his ADs for any kind of distance. Pt reports he was struggling both with dizziness and initiating movement, but has benefitted greatly from starting L-dopa. Treatment Goals Patient/Caregiver Goals I want to get more strength in my legs and get better balance. PT-OP-C Subjective Start: 06/29/22 16:47 Freq: Status: Active Protocol: Document 07/17/22 15:19 DCW (Rec: 07/17/22 16:02 DCW [id number]) OP-PT Subjective Patient Comments Patient Comments Pt a little sore following last visit, but nothing too bad. PT-OP-D Balance Start: 06/29/22 16:47 Freq: Status: Active Protocol: Document 06/29/22 15:15 DCW (Rec: 06/29/22 16:53 DCW [id number]) OP-PT Balance Assessment Sitting Balance Static Sitting Balance Ability Normal Dynamic Sitting Balance Ability Normal Standing Balance Static Standing Balance Ability Fair Dynamic Standing Balance Ability Fair Balance Tests Rodriguez Balance Test Rodriguez Balance Test Score 36/56 Rodriguez Impairment Rating 20 to 39% Impaired (Score 34- 44) Rodriguez Balance Assessment Evaluation Sitting to Standing Ability Independent w/Hands Unsupported Stance Supervision- 2 minutes Sitting Unsupported, Feet on Floor Safely- 2 minutes Standing to Sitting Ability Assist, Use Legs on Chair Transfer Ability Safely, Hand Use Unsupported Stance- Eyes Closed 3 seconds Unsupported Stance- Eyes Open Independent, <30 seconds Reaching Forward Standing Safely, 5 inches Pick- Up Object From Floor Supervision Look Behind Shoulder - Standing Turns Sideways Only Turning 360 Degrees Turns slowly, but safely Unsupported Stance, Alternating Feet on 4 Steps w/Supervision Stair Unsupported Tandem Stance Holds Tandem- 30 seconds Unilateral Leg Stance Lifts Leg/Holds > 3 secs Total Score Rodriguez Total Score (out of 56 points) 36 Rodriguez Impairment Rating 20 to 39% Impaired (Score 34- 44) Ellis Fall Scale Copyright Permission PT-OP-E Functional Tests Start: 06/29/22 16:47 Freq: Status: Active Protocol: Document 06/29/22 15:15 DCW (Rec: 06/29/22 16:53 [facility] [id number]) Functional Tests Dynamic Gait Index (DGI) Score 17/24 DGI Impairment Rating 20 to <40% Impaired (Score 15- 19) Timed Up and Go (TUG) Score 22.16 Comments Three-trial average (26.31, 21 .67, 18.49) TUG Impairment Rating 100% Impaired (Score 20) PT-OP-M Strength Start: 06/29/22 16:47 Freq: Status: Active Protocol: Document 06/29/22 15:15 DCW (Rec: 06/29/22 16:53 [facility] [id number]) Hip Strength Hip Manual Muscle Testing Right Flexion (L2) 4 Good Extension (S1) 4- Good- Abduction 4- Good- Adduction 4 Good External Rotation 4 Good Internal Rotation 4 Good Left Flexion (L2) 4- Good- Extension (S1) 4+ Good+ Abduction 4- Good- External Rotation 4 Good Internal Rotation 4 Good Knee Strength Knee Manual Muscle Testing Right Flexion (S2) 4 Good Extension (L3) 4 Good Left Flexion (S2) 4 Good Extension (L3) 4 Good Ankle/Foot Strength Ankle and Foot Manual Muscle Testing Right Dorsiflexion (L4) 4 Good Left Dorsiflexion (L4) 4 Good PT-OP-Q Treatments Start: 06/29/22 16:47 Freq: Status: Active Protocol: Document 07/17/22 15:19 DCW (Rec: 07/17/22 16:02 DCW [id number]) Cardio Equipment Recumbent Elliptical (Biodex) Duration (Minutes) 5 Resistance 4 Seat Position 9 Gym Equipment Shuttle Recovery Unilateral Squats Resistance 37# Shuttle Recovery Platform Stable Reps/Time x20 Bilateral Squats Resistance 62# Shuttle Recovery Platform Stable Reps/Time x20 Shuttle Balance Red Details WBOS, Staggered Therapeutic Exercises Standing Exercises Hamstring curls Standing Exercise Name Hamstring curls Side bilateral Resistance 4# Hip Extension Standing Exercise Name Hip Extension Side bilateral Resistance Yellow Hip Abduction Standing Exercise Name Hip abduction Side bilateral Resistance Yellow Toe-taps Standing Exercise Name Toe-taps Side bilateral Resistance 4# Equipment Used 6 step Neuro Re-Education Treatment Balance Activities SLS Details SLS Equipment // bars Tandem Stance Details Tandem Stance Equipment // bars Foam Stance Details Foam stance Surface Blue foam Comments EO/EC PT-OP-T Assessment and Plan Start: 06/29/22 16:47 Freq: Status: Active Protocol: Document 07/17/22 15:19 DCW (Rec: 07/17/22 16:02 NMW [id number]) Physical Therapy Assessment Impairments Impairments Activity Tolerance,Balance, Functional Activities, Functional Mobility,Gait, Posture,Soft Tissue Mobility, Strength Goals Three Impairment Pt scores a 22.16 on the TUG Pin Worker Goal (LTG) Pt to decrease score on TUG to at most 15 in order to demonstrate increased safety with functional mobility. LTG Duration 09/27/22 Two Impairment Increased falls risk per Rodriguez (36/56) and DGI (17/24) scores Senior Care Goal (LTG) Pt to increase Rodriguez score by at least 10 points to 46/56 in order to demonstrate a decreased risk of falling. LTG Duration 09/27/22 One Impairment Pt does not have an appropriate home exercise program Short Term Goal (STG) Pt to be independent and compliant with an appropriate HEP STG Duration 08/13/22 Assessment Summary Assessment Pt tolerated treatment well today, did not have as much fatigue or rest requests today . Doing well with HEP. Physical Therapy Plan Frequency and Duration Frequency of Treatment 2x/Week Plan of Care Start Date 06/29/22 Plan of Care End Date 09/27/22 Therapeutic Interventions Therapeutic Interventions Balance Training,Coordination Training,Gait Training,Home Exercise Program,Manual Therapy,Neuromuscular Re- education,Patient/Caregiver Education,Self-Care/Home Management,Soft Tissue Mobilization,Therapeutic Activities,Therapeutic Exercises Next Visit Focus/Plan Next Note Type Treatment Note Next Visit Plan Strengthening, balance and gait training.
--- NOTE | 2022-07-20 16:01 | PT.OTN ---
Current Diagnoses Parkinson's disease (07/20/22) Unsteadiness on feet (07/20/22) Other abnormalities of gait and mobility (07/20/22) Repeated falls (07/20/22) Physical Therapy Treatment Note PT-OP-A Visit Information Start: 06/29/22 16:47 Freq: Status: Active Protocol: Document 07/20/22 15:18 DCW (Rec: 07/20/22 16:00 DCW [id number]) Out-Patient Physical Therapy Visit Information Visit Information Visit Type Treatment Note Visit Start Time 15:18 Visit Stop Time 16:00 Total Visit Minutes 42 Visit Number 6 Number of PREFITTER Visits 0 Evaluation Information Evaluation Date 06/29/22 PT-OP-B Current Condition Start: 06/29/22 16:47 Freq: Status: Active Protocol: Document 06/29/22 15:15 DCW (Rec: 07/02/22 09:40 DCW [id number]) Current Condition History of Current Condition Onset Date Multi-year history Current Complaints Falls, imbalance, weakness History of Current Condition Pt is a 76 year old male presenting with a multi-year history of imbalance, falls, and weakness who is three months s/p official diagnosis of Parkinson's disease. Pt reports he has fallen five times over the last year, four of which have been within the past three months, but notes that none of the falls have been serious. Pt uses SPC and FWW for ambulation most of the time, but finds them annoying, tries to get around without it, but uses his ADs for any kind of distance. Pt reports he was struggling both with dizziness and initiating movement, but has benefitted greatly from starting L-dopa. Treatment Goals Patient/Caregiver Goals I want to get more strength in my legs and get better balance. PT-OP-C Subjective Start: 06/29/22 16:47 Freq: Status: Active Protocol: Document 07/20/22 15:18 DCW (Rec: 07/20/22 16:00 DCW [id number]) OP-PT Subjective Patient Comments Patient Comments Pt admits that his legs are still fatigued following his appointment on Saturday, but feels like it is a good sign that he is getting enough of a workout and he is still able to function well day-to-day PT-OP-D Balance Start: 06/29/22 16:47 Freq: Status: Active Protocol: Document 06/29/22 15:15 DCW (Rec: 06/29/22 16:53 [facility] [id number]) OP-PT Balance Assessment Sitting Balance Static Sitting Balance Ability Normal Dynamic Sitting Balance Ability Normal Standing Balance Static Standing Balance Ability Fair Dynamic Standing Balance Ability Fair Balance Tests Rodriguez Balance Test Rodriguez Balance Test Score 36/56 Rodriguez Impairment Rating 20 to 39% Impaired (Score 34- 44) Rodriguez Balance Assessment Evaluation Sitting to Standing Ability Independent w/Hands Unsupported Stance Supervision- 2 minutes Sitting Unsupported, Feet on Floor Safely- 2 minutes Standing to Sitting Ability Assist, Use Legs on Chair Transfer Ability Safely, Hand Use Unsupported Stance- Eyes Closed 3 seconds Unsupported Stance- Eyes Open Independent, <30 seconds Reaching Forward Standing Safely, 5 inches Pick- Up Object From Floor Supervision Look Behind Shoulder - Standing Turns Sideways Only Turning 360 Degrees Turns slowly, but safely Unsupported Stance, Alternating Feet on 4 Steps w/Supervision Stair Unsupported Tandem Stance Holds Tandem- 30 seconds Unilateral Leg Stance Lifts Leg/Holds > 3 secs Total Score Rodriguez Total Score (out of 56 points) 36 Rodriguez Impairment Rating 20 to 39% Impaired (Score 34- 44) Ellis Fall Scale Copyright Permission PT-OP-E Functional Tests Start: 06/29/22 16:47 Freq: Status: Active Protocol: Document 06/29/22 15:15 DCW (Rec: 06/29/22 16:53 [facility] [id number]) Functional Tests Dynamic Gait Index (DGI) Score 17/24 DGI Impairment Rating 20 to <40% Impaired (Score 15- 19) Timed Up and Go (TUG) Score 22.16 Comments Three-trial average (26.31, 21 .67, 18.49) TUG Impairment Rating 100% Impaired (Score 20) PT-OP-M Strength Start: 06/29/22 16:47 Freq: Status: Active Protocol: Document 06/29/22 15:15 DCW (Rec: 06/29/22 16:53 FLW [id number]) Hip Strength Hip Manual Muscle Testing Right Flexion (L2) 4 Good Extension (S1) 4- Good- Abduction 4- Good- Adduction 4 Good External Rotation 4 Good Internal Rotation 4 Good Left Flexion (L2) 4- Good- Extension (S1) 4+ Good+ Abduction 4- Good- External Rotation 4 Good Internal Rotation 4 Good Knee Strength Knee Manual Muscle Testing Right Flexion (S2) 4 Good Extension (L3) 4 Good Left Flexion (S2) 4 Good Extension (L3) 4 Good Ankle/Foot Strength Ankle and Foot Manual Muscle Testing Right Dorsiflexion (L4) 4 Good Left Dorsiflexion (L4) 4 Good PT-OP-Q Treatments Start: 06/29/22 16:47 Freq: Status: Active Protocol: Document 07/20/22 15:18 DCW (Rec: 07/20/22 16:00 DCW [id number]) Cardio Equipment Recumbent Elliptical (Biodex) Duration (Minutes) 5 Resistance 4 Seat Position 9 Gym Equipment Shuttle Recovery Unilateral Squats Resistance 37# Shuttle Recovery Platform Stable Reps/Time x20 Bilateral Squats Resistance 62# Shuttle Recovery Platform Stable Reps/Time x20 Shuttle Balance Red Details WBOS, Staggered Therapeutic Exercises Standing Exercises Hamstring curls Standing Exercise Name Hamstring curls Side bilateral Resistance 4# Hip Extension Standing Exercise Name Hip Extension Side bilateral Resistance Yellow Hip Abduction Standing Exercise Name Hip abduction Side bilateral Resistance Yellow Toe-taps Standing Exercise Name Toe-taps Side bilateral Resistance 4# Equipment Used 6 step Neuro Re-Education Treatment Balance Activities Hurdles Details Hurdles/Foam Equipment // bars Comments Staggered, Tandem, Side- stepping Foam Stance Details Foam stance Surface Blue foam Comments EO/EC PT-OP-T Assessment and Plan Start: 06/29/22 16:47 Freq: Status: Active Protocol: Document 07/20/22 15:18 DCW (Rec: 07/20/22 16:00 FLW [id number]) Physical Therapy Assessment Impairments Impairments Activity Tolerance,Balance, Functional Activities, Functional Mobility,Gait, Posture,Soft Tissue Mobility, Strength Goals Three Impairment Pt scores a 22.16 on the TUG Film Or Videotape Editor Goal (LTG) Pt to decrease score on TUG to at most 15 in order to demonstrate increased safety with functional mobility. LTG Duration 09/27/22 Two Impairment Increased falls risk per Rodriguez (36/56) and DGI (17/24) scores Mcc Goal (LTG) Pt to increase Rodriguez score by at least 10 points to 46/56 in order to demonstrate a decreased risk of falling. LTG Duration 09/27/22 One Impairment Pt does not have an appropriate home exercise program Short Term Goal (STG) Pt to be independent and compliant with an appropriate HEP STG Duration 08/13/22 Assessment Summary Assessment Pt continuing to improve with activity tolerance. Still noting some significant fatigue by end of session, but is bouncing back to fully participate in normal daily activities afterward. Continue to work on stability and LE strengthening. Physical Therapy Plan Frequency and Duration Frequency of Treatment 2x/Week Plan of Care Start Date 06/29/22 Plan of Care End Date 09/27/22 Therapeutic Interventions Therapeutic Interventions Balance Training,Coordination Training,Gait Training,Home Exercise Program,Manual Therapy,Neuromuscular Re- education,Patient/Caregiver Education,Self-Care/Home Management,Soft Tissue Mobilization,Therapeutic Activities,Therapeutic Exercises Next Visit Focus/Plan Next Note Type Treatment Note Next Visit Plan Strengthening, balance and gait training.
--- NOTE | 2022-07-25 15:15 | PT.OTN ---
Current Diagnoses Parkinson's disease (07/25/22) Unsteadiness on feet (07/25/22) Other abnormalities of gait and mobility (07/25/22) Repeated falls (07/25/22) Physical Therapy Treatment Note PT-OP-A Visit Information Start: 06/29/22 16:47 Freq: Status: Active Protocol: Document 07/25/22 14:35 SP (Rec: 07/25/22 15:38 SP [id number]) Out-Patient Physical Therapy Visit Information Visit Information Visit Type Treatment Note Visit Note Pt went to bathroom after checked in Visit Start Time 14:35 Visit Stop Time 15:15 Total Visit Minutes 40 Visit Number 7 Number of FLATBED OWNER OPERATOR Visits 1 Evaluation Information Evaluation Date 06/29/22 PT-OP-B Current Condition Start: 06/29/22 16:47 Freq: Status: Active Protocol: Document 06/29/22 15:15 DCW (Rec: 07/02/22 09:40 DCW [id number]) Current Condition History of Current Condition Onset Date Multi-year history Current Complaints Falls, imbalance, weakness History of Current Condition Pt is a 76 year old male presenting with a multi-year history of imbalance, falls, and weakness who is three months s/p official diagnosis of Parkinson's disease. Pt reports he has fallen five times over the last year, four of which have been within the past three months, but notes that none of the falls have been serious. Pt uses SPC and FWW for ambulation most of the time, but finds them annoying, tries to get around without it, but uses his ADs for any kind of distance. Pt reports he was struggling both with dizziness and initiating movement, but has benefitted greatly from starting L-dopa. Treatment Goals Patient/Caregiver Goals I want to get more strength in my legs and get better balance. PT-OP-C Subjective Start: 06/29/22 16:47 Freq: Status: Active Protocol: Document 07/25/22 14:35 SP (Rec: 07/25/22 15:38 SP [id number]) OP-PT Subjective Patient Comments Patient Comments Pt reported had a good work out last tx. Pt reports legs feeling stronger, but sill wobbly. PT-OP-D Balance Start: 06/29/22 16:47 Freq: Status: Active Protocol: Document 06/29/22 15:15 DCW (Rec: 06/29/22 16:53 [facility] [id number]) OP-PT Balance Assessment Sitting Balance Static Sitting Balance Ability Normal Dynamic Sitting Balance Ability Normal Standing Balance Static Standing Balance Ability Fair Dynamic Standing Balance Ability Fair Balance Tests Rodriguez Balance Test Rodriguez Balance Test Score 36/56 Rodriguez Impairment Rating 20 to 39% Impaired (Score 34- 44) Rodriguez Balance Assessment Evaluation Sitting to Standing Ability Independent w/Hands Unsupported Stance Supervision- 2 minutes Sitting Unsupported, Feet on Floor Safely- 2 minutes Standing to Sitting Ability Assist, Use Legs on Chair Transfer Ability Safely, Hand Use Unsupported Stance- Eyes Closed 3 seconds Unsupported Stance- Eyes Open Independent, <30 seconds Reaching Forward Standing Safely, 5 inches Pick- Up Object From Floor Supervision Look Behind Shoulder - Standing Turns Sideways Only Turning 360 Degrees Turns slowly, but safely Unsupported Stance, Alternating Feet on 4 Steps w/Supervision Stair Unsupported Tandem Stance Holds Tandem- 30 seconds Unilateral Leg Stance Lifts Leg/Holds > 3 secs Total Score Rodriguez Total Score (out of 56 points) 36 Rodriguez Impairment Rating 20 to 39% Impaired (Score 34- 44) Ellis Fall Scale Copyright Permission PT-OP-E Functional Tests Start: 06/29/22 16:47 Freq: Status: Active Protocol: Document 06/29/22 15:15 DCW (Rec: 06/29/22 16:53 [facility] [id number]) Functional Tests Dynamic Gait Index (DGI) Score 17/24 DGI Impairment Rating 20 to <40% Impaired (Score 15- 19) Timed Up and Go (TUG) Score 22.16 Comments Three-trial average (26.31, 21 .67, 18.49) TUG Impairment Rating 100% Impaired (Score 20) PT-OP-M Strength Start: 06/29/22 16:47 Freq: Status: Active Protocol: Document 06/29/22 15:15 DCW (Rec: 06/29/22 16:53 [facility] [id number]) Hip Strength Hip Manual Muscle Testing Right Flexion (L2) 4 Good Extension (S1) 4- Good- Abduction 4- Good- Adduction 4 Good External Rotation 4 Good Internal Rotation 4 Good Left Flexion (L2) 4- Good- Extension (S1) 4+ Good+ Abduction 4- Good- External Rotation 4 Good Internal Rotation 4 Good Knee Strength Knee Manual Muscle Testing Right Flexion (S2) 4 Good Extension (L3) 4 Good Left Flexion (S2) 4 Good Extension (L3) 4 Good Ankle/Foot Strength Ankle and Foot Manual Muscle Testing Right Dorsiflexion (L4) 4 Good Left Dorsiflexion (L4) 4 Good PT-OP-Q Treatments Start: 06/29/22 16:47 Freq: Status: Active Protocol: Document 07/25/22 14:35 SP (Rec: 07/25/22 15:38 SP [id number]) Cardio Equipment Recumbent Elliptical (Biodex) Duration (Minutes) 5 Resistance 4 (344 step total) Seat Position 9> 8 (scooted all way back as well) Other LEs only, 35-40 RPM PETRA 13 somewhat hard Gym Equipment Shuttle Recovery Unilateral Squats Resistance 37# (1 new band) Shuttle Recovery Platform Stable Reps/Time x20 Bilateral Squats Resistance 62# (1 new band) Shuttle Recovery Platform Stable Reps/Time x20 Therapeutic Exercises Sitting Exercises STS Sitting Exercise Name at times between activities Equipment Used use UEs PRN Reps/Minutes 2 reps between couple activities Comments scoot fwd and hip hinge, slow descend- good reach back awareness/safety Standing Exercises Hip Extension Standing Exercise Name Hip Extension Side bilateral Resistance Yellow (AROM at home 2* unable don/doff TB) Equipment Used //bar Reps/Minutes 2 x5reps AROM, 5 reps YTB at thighs Comments cued tall book on head posture improved form Hip Abduction Standing Exercise Name Hip abduction Side bilateral Resistance Yellow (at home AROM) Equipment Used //bar Reps/Minutes 2 x5reps AROM, 5 reps YTB at thighs Comments cued tall book on head posture improved form Neuro Re-Education Treatment Balance Activities step ups Details CGA Surface 6step and blue foam Equipment //bars PRN Reps/Duration 2x5 reps each LE lead Comments cGA due to quick ascend stability, 2x trail toe caught foam but self recovery, Min A descend due to retro lean post trail LE, cued slower descend and tall posture more fwd. Tilt Board Details Tilt board Equipment //bars Comments DF/PF wt shift/ HTs EC up to 30 sec 2x Min A retro Lateral- wt shift PT-OP-T Assessment and Plan Start: 06/29/22 16:47 Freq: Status: Active Protocol: Document 07/25/22 14:35 SP (Rec: 07/25/22 15:38 SP [id number]) Physical Therapy Assessment Goals Three Impairment Pt scores a 22.16 on the TUG Postdoctoral Scientist Goal (LTG) Pt to decrease score on TUG to at most 15 in order to demonstrate increased safety with functional mobility. LTG Duration 09/27/22 Two Impairment Increased falls risk per Rodriguez (36/56) and DGI (17/24) scores Skilled Nursing Goal (LTG) Pt to increase Rodriguez score by at least 10 points to 46/56 in order to demonstrate a decreased risk of falling. LTG Duration 09/27/22 One Impairment Pt does not have an appropriate home exercise program Short Term Goal (STG) Pt to be independent and compliant with an appropriate HEP STG Duration 08/13/22 Assessment Summary Assessment Pt improved self corrections on posture during ther ex and awareness of core and COG over RADHA during tilt board able to perform HTs and corrections EC Min A. Ed for awareness of rest recovery between activities if needed to allow latent response mindfulness. Physical Therapy Plan Frequency and Duration Frequency of Treatment 2x/Week Plan of Care Start Date 06/29/22 Plan of Care End Date 09/27/22 Therapeutic Interventions Therapeutic Interventions Balance Training,Coordination Training,Gait Training,Home Exercise Program,Manual Therapy,Neuromuscular Re- education,Patient/Caregiver Education,Self-Care/Home Management,Soft Tissue Mobilization,Therapeutic Activities,Therapeutic Exercises Next Visit Focus/Plan Next Note Type Treatment Note Next Visit Plan Recheck HEP: hip abd, ext AROM , STS. POC: Strengthening, balance and gait training.
--- NOTE | 2022-07-31 14:29 | PT.OTN ---
Current Diagnoses Parkinson's disease (07/31/22) Unsteadiness on feet (07/31/22) Other abnormalities of gait and mobility (07/31/22) Repeated falls (07/31/22) Physical Therapy Treatment Note PT-OP-A Visit Information Start: 06/29/22 16:47 Freq: Status: Active Protocol: Document 07/31/22 13:49 DCW (Rec: 07/31/22 14:29 DCW [id number]) Out-Patient Physical Therapy Visit Information Visit Information Visit Type Treatment Note Visit Start Time 13:49 Visit Stop Time 14:30 Total Visit Minutes 41 Visit Number 8 Number of BALLAST CLEANING MACHINE OPERATOR Visits 0 Evaluation Information Evaluation Date 06/29/22 PT-OP-B Current Condition Start: 06/29/22 16:47 Freq: Status: Active Protocol: Document 06/29/22 15:15 DCW (Rec: 07/02/22 09:40 DCW [id number]) Current Condition History of Current Condition Onset Date Multi-year history Current Complaints Falls, imbalance, weakness History of Current Condition Pt is a 76 year old male presenting with a multi-year history of imbalance, falls, and weakness who is three months s/p official diagnosis of Parkinson's disease. Pt reports he has fallen five times over the last year, four of which have been within the past three months, but notes that none of the falls have been serious. Pt uses SPC and FWW for ambulation most of the time, but finds them annoying, tries to get around without it, but uses his ADs for any kind of distance. Pt reports he was struggling both with dizziness and initiating movement, but has benefitted greatly from starting L-dopa. Treatment Goals Patient/Caregiver Goals I want to get more strength in my legs and get better balance. PT-OP-C Subjective Start: 06/29/22 16:47 Freq: Status: Active Protocol: Document 07/31/22 13:49 DCW (Rec: 07/31/22 14:29 DCW [id number]) OP-PT Subjective Patient Comments Patient Comments Pt reports he is ready to get to work. PT-OP-D Balance Start: 06/29/22 16:47 Freq: Status: Active Protocol: Document 06/29/22 15:15 DCW (Rec: 06/29/22 16:53 DCW [id number]) OP-PT Balance Assessment Sitting Balance Static Sitting Balance Ability Normal Dynamic Sitting Balance Ability Normal Standing Balance Static Standing Balance Ability Fair Dynamic Standing Balance Ability Fair Balance Tests Rodriguez Balance Test Rodriguez Balance Test Score 36/56 Rodriguez Impairment Rating 20 to 39% Impaired (Score 34- 44) Rodriguez Balance Assessment Evaluation Sitting to Standing Ability Independent w/Hands Unsupported Stance Supervision- 2 minutes Sitting Unsupported, Feet on Floor Safely- 2 minutes Standing to Sitting Ability Assist, Use Legs on Chair Transfer Ability Safely, Hand Use Unsupported Stance- Eyes Closed 3 seconds Unsupported Stance- Eyes Open Independent, <30 seconds Reaching Forward Standing Safely, 5 inches Pick- Up Object From Floor Supervision Look Behind Shoulder - Standing Turns Sideways Only Turning 360 Degrees Turns slowly, but safely Unsupported Stance, Alternating Feet on 4 Steps w/Supervision Stair Unsupported Tandem Stance Holds Tandem- 30 seconds Unilateral Leg Stance Lifts Leg/Holds > 3 secs Total Score Rodriguez Total Score (out of 56 points) 36 Rodriguez Impairment Rating 20 to 39% Impaired (Score 34- 44) Ellis Fall Scale Copyright Permission PT-OP-E Functional Tests Start: 06/29/22 16:47 Freq: Status: Active Protocol: Document 06/29/22 15:15 DCW (Rec: 06/29/22 16:53 [facility] [id number]) Functional Tests Dynamic Gait Index (DGI) Score 17/24 DGI Impairment Rating 20 to <40% Impaired (Score 15- 19) Timed Up and Go (TUG) Score 22.16 Comments Three-trial average (26.31, 21 .67, 18.49) TUG Impairment Rating 100% Impaired (Score 20) PT-OP-M Strength Start: 06/29/22 16:47 Freq: Status: Active Protocol: Document 06/29/22 15:15 DCW (Rec: 06/29/22 16:53 DC [id number]) Hip Strength Hip Manual Muscle Testing Right Flexion (L2) 4 Good Extension (S1) 4- Good- Abduction 4- Good- Adduction 4 Good External Rotation 4 Good Internal Rotation 4 Good Left Flexion (L2) 4- Good- Extension (S1) 4+ Good+ Abduction 4- Good- External Rotation 4 Good Internal Rotation 4 Good Knee Strength Knee Manual Muscle Testing Right Flexion (S2) 4 Good Extension (L3) 4 Good Left Flexion (S2) 4 Good Extension (L3) 4 Good Ankle/Foot Strength Ankle and Foot Manual Muscle Testing Right Dorsiflexion (L4) 4 Good Left Dorsiflexion (L4) 4 Good PT-OP-Q Treatments Start: 06/29/22 16:47 Freq: Status: Active Protocol: Document 07/31/22 13:49 DCW (Rec: 07/31/22 14:29 DCW [id number]) Cardio Equipment Recumbent Elliptical (Biodex) Duration (Minutes) 5 Resistance 4 Seat Position 9 Gym Equipment Shuttle Recovery Unilateral Squats Resistance 37# Shuttle Recovery Platform Stable Reps/Time x20 Bilateral Squats Resistance 75# (1 new band) Shuttle Recovery Platform Stable Reps/Time x20 Shuttle Balance Red Details WBOS, Staggered Therapeutic Exercises Standing Exercises Hamstring curls Standing Exercise Name Hamstring curls Side bilateral Resistance 4# Hip Extension Standing Exercise Name Hip Extension Side bilateral Resistance Yellow Hip Abduction Standing Exercise Name Hip abduction Side bilateral Resistance Yellow Toe-taps Standing Exercise Name Toe-taps Side bilateral Resistance 4# Equipment Used 6 step Neuro Re-Education Treatment Balance Activities SLS Details SLS Equipment // bars Tandem Stance Details Tandem Stance Equipment // bars Foam Stance Details Foam stance Surface Blue foam Comments EO/EC PT-OP-T Assessment and Plan Start: 06/29/22 16:47 Freq: Status: Active Protocol: Document 07/31/22 13:49 DCW (Rec: 07/31/22 14:29 DCW [id number]) Physical Therapy Assessment Impairments Impairments Activity Tolerance,Balance, Functional Activities, Functional Mobility,Gait, Posture,Soft Tissue Mobility, Strength Goals Three Impairment Pt scores a 22.16 on the TUG Retort Pre Cooker Goal (LTG) Pt to decrease score on TUG to at most 15 in order to demonstrate increased safety with functional mobility. LTG Duration 09/27/22 Two Impairment Increased falls risk per Rodriguez (36/56) and DGI (17/24) scores Retort Pre Cooker Goal (LTG) Pt to increase Rodriguez score by at least 10 points to 46/56 in order to demonstrate a decreased risk of falling. LTG Duration 09/27/22 One Impairment Pt does not have an appropriate home exercise program Short Term Goal (STG) Pt to be independent and compliant with an appropriate HEP STG Duration 08/13/22 Assessment Summary Assessment Pt did very well today, able to participate fully in all activities with no need for rest breaks. Anticipate increasing resistance and difficulty with most activities next visit. Physical Therapy Plan Frequency and Duration Frequency of Treatment 2x/Week Plan of Care Start Date 06/29/22 Plan of Care End Date 09/27/22 Therapeutic Interventions Therapeutic Interventions Balance Training,Coordination Training,Gait Training,Home Exercise Program,Manual Therapy,Neuromuscular Re- education,Patient/Caregiver Education,Self-Care/Home Management,Soft Tissue Mobilization,Therapeutic Activities,Therapeutic Exercises Next Visit Focus/Plan Next Note Type Treatment Note Next Visit Plan Recheck HEP: hip abd, ext AROM , STS. POC: Strengthening, balance and gait training.
--- NOTE | 2022-08-03 13:45 | PT.OTN ---
Current Diagnoses Parkinson's disease (08/03/22) Unsteadiness on feet (08/03/22) Other abnormalities of gait and mobility (08/03/22) Repeated falls (08/03/22) Physical Therapy Treatment Note PT-OP-A Visit Information Start: 06/29/22 16:47 Freq: Status: Active Protocol: Document 08/03/22 13:04 SP (Rec: 08/03/22 16:35 SP [id number]) Out-Patient Physical Therapy Visit Information Visit Information Visit Type Treatment Note Visit Start Time 13:04 Visit Stop Time 13:45 Total Visit Minutes 41 Visit Number 9 Number of DIRECTOR PROCESS ENGINEERING Visits 1 Evaluation Information Evaluation Date 06/29/22 PT-OP-B Current Condition Start: 06/29/22 16:47 Freq: Status: Active Protocol: Document 06/29/22 15:15 DCW (Rec: 07/02/22 09:40 DCW [id number]) Current Condition History of Current Condition Onset Date Multi-year history Current Complaints Falls, imbalance, weakness History of Current Condition Pt is a 76 year old male presenting with a multi-year history of imbalance, falls, and weakness who is three months s/p official diagnosis of Parkinson's disease. Pt reports he has fallen five times over the last year, four of which have been within the past three months, but notes that none of the falls have been serious. Pt uses SPC and FWW for ambulation most of the time, but finds them annoying, tries to get around without it, but uses his ADs for any kind of distance. Pt reports he was struggling both with dizziness and initiating movement, but has benefitted greatly from starting L-dopa. Treatment Goals Patient/Caregiver Goals I want to get more strength in my legs and get better balance. PT-OP-C Subjective Start: 06/29/22 16:47 Freq: Status: Active Protocol: Document 08/03/22 13:04 SP (Rec: 08/03/22 16:35 SP [id number]) OP-PT Subjective Patient Comments Patient Comments Pt reports felt pretty good after last tx, good work out. PT-OP-D Balance Start: 06/29/22 16:47 Freq: Status: Active Protocol: Document 06/29/22 15:15 DCW (Rec: 06/29/22 16:53 DCW [id number]) OP-PT Balance Assessment Sitting Balance Static Sitting Balance Ability Normal Dynamic Sitting Balance Ability Normal Standing Balance Static Standing Balance Ability Fair Dynamic Standing Balance Ability Fair Balance Tests Rodriguez Balance Test Rodriguez Balance Test Score 36/56 Rodriguez Impairment Rating 20 to 39% Impaired (Score 34- 44) Rodriguez Balance Assessment Evaluation Sitting to Standing Ability Independent w/Hands Unsupported Stance Supervision- 2 minutes Sitting Unsupported, Feet on Floor Safely- 2 minutes Standing to Sitting Ability Assist, Use Legs on Chair Transfer Ability Safely, Hand Use Unsupported Stance- Eyes Closed 3 seconds Unsupported Stance- Eyes Open Independent, <30 seconds Reaching Forward Standing Safely, 5 inches Pick- Up Object From Floor Supervision Look Behind Shoulder - Standing Turns Sideways Only Turning 360 Degrees Turns slowly, but safely Unsupported Stance, Alternating Feet on 4 Steps w/Supervision Stair Unsupported Tandem Stance Holds Tandem- 30 seconds Unilateral Leg Stance Lifts Leg/Holds > 3 secs Total Score Rodriguez Total Score (out of 56 points) 36 Rodriguez Impairment Rating 20 to 39% Impaired (Score 34- 44) Ellis Fall Scale Copyright Permission PT-OP-E Functional Tests Start: 06/29/22 16:47 Freq: Status: Active Protocol: Document 06/29/22 15:15 DCW (Rec: 06/29/22 16:53 [facility] [id number]) Functional Tests Dynamic Gait Index (DGI) Score 17/24 DGI Impairment Rating 20 to <40% Impaired (Score 15- 19) Timed Up and Go (TUG) Score 22.16 Comments Three-trial average (26.31, 21 .67, 18.49) TUG Impairment Rating 100% Impaired (Score 20) PT-OP-M Strength Start: 06/29/22 16:47 Freq: Status: Active Protocol: Document 06/29/22 15:15 DCW (Rec: 06/29/22 16:53 DC [id number]) Hip Strength Hip Manual Muscle Testing Right Flexion (L2) 4 Good Extension (S1) 4- Good- Abduction 4- Good- Adduction 4 Good External Rotation 4 Good Internal Rotation 4 Good Left Flexion (L2) 4- Good- Extension (S1) 4+ Good+ Abduction 4- Good- External Rotation 4 Good Internal Rotation 4 Good Knee Strength Knee Manual Muscle Testing Right Flexion (S2) 4 Good Extension (L3) 4 Good Left Flexion (S2) 4 Good Extension (L3) 4 Good Ankle/Foot Strength Ankle and Foot Manual Muscle Testing Right Dorsiflexion (L4) 4 Good Left Dorsiflexion (L4) 4 Good PT-OP-Q Treatments Start: 06/29/22 16:47 Freq: Status: Active Protocol: Document 08/03/22 13:04 SP (Rec: 08/03/22 16:35 SP [id number]) Cardio Equipment Recumbent Elliptical (Biodex) Duration (Minutes) 5 Resistance 4 Seat Position 9 Other LEs only 40 RPMs Gym Equipment Shuttle Recovery Unilateral Squats Resistance 37# (1 new band) Shuttle Recovery Platform Stable Reps/Time x20 Bilateral Squats Resistance 75# (1 new band) Shuttle Recovery Platform Stable Reps/Time x20 Shuttle Balance Red Details WBOS, Staggered Comments 1. wt shfit f/b 2. HTs CG- Min A- good carryover wt shift body alignment directioning corrections with cues. Therapeutic Exercises Standing Exercises Toe-taps Standing Exercise Name Toe-taps Side bilateral Resistance 4# Equipment Used 6 step Reps/Minutes 2x10 reps Comments cued soft con/eccentric LE positioning Neuro Re-Education Treatment Balance Activities perturbations Details Dynamic wt, isometric trunk wt shifting and recovery removal Equipment back, heels to wall Reps/Duration 3 min Comments CG- Min A for balance recovery forward LOB x2 fwd, improvement self corrections with reps. Hurdles Details Hurdles Surface 4# leg wt Equipment // bars, PRN bar contact Comments cued posturing, stack posture over LE and core improved balance recovery CG- 10%A PT-OP-T Assessment and Plan Start: 06/29/22 16:47 Freq: Status: Active Protocol: Document 08/03/22 13:04 SP (Rec: 08/03/22 16:35 SP [id number]) Physical Therapy Assessment Goals Three Impairment Pt scores a 22.16 on the TUG Senior Living Goal (LTG) Pt to decrease score on TUG to at most 15 in order to demonstrate increased safety with functional mobility. LTG Duration 09/27/22 Two Impairment Increased falls risk per Rodriguez (36/56) and DGI (17) scores Senior Living Goal (LTG) Pt to increase Rodriguez score by at least 10 points to 46/56 in order to demonstrate a decreased risk of falling. LTG Duration 09/27/22 One Impairment Pt does not have an appropriate home exercise program Short Term Goal (STG) Pt to be independent and compliant with an appropriate HEP STG Duration 08/13/22 Assessment Summary Assessment Pt demontrates improved carryover wt shift body alignment directioning recovery with cues on shuttle recovery and perturbations at wall to allow balance recovery durign community gait. Improved edurance in standing, no seated rest required during tx. Physical Therapy Plan Frequency and Duration Frequency of Treatment 2x/Week Plan of Care Start Date 06/29/22 Plan of Care End Date 09/27/22 Therapeutic Interventions Therapeutic Interventions Balance Training,Coordination Training,Gait Training,Home Exercise Program,Manual Therapy,Neuromuscular Re- education,Patient/Caregiver Education,Self-Care/Home Management,Soft Tissue Mobilization,Therapeutic Activities,Therapeutic Exercises Next Visit Focus/Plan Next Note Type Treatment Note Next Visit Plan Continue perturbations Recheck HEP: hip abd, ext AROM, STS. POC: Strengthening, balance and gait training.
--- NOTE | 2022-08-08 12:44 | PT.OTN ---
Current Diagnoses Parkinson's disease (08/08/22) Unsteadiness on feet (08/08/22) Other abnormalities of gait and mobility (08/08/22) Repeated falls (08/08/22) Physical Therapy Treatment Note PT-OP-A Visit Information Start: 06/29/22 16:47 Freq: Status: Active Protocol: Document 08/08/22 12:03 DCW (Rec: 08/08/22 12:44 DCW [id number]) Out-Patient Physical Therapy Visit Information Visit Information Visit Type Progress Note Visit Note 10th visit Visit Start Time 12:03 Visit Stop Time 12:45 Total Visit Minutes 42 Visit Number 10 Number of COLOR CARD MAKER Visits 0 Evaluation Information Evaluation Date 06/29/22 PT-OP-B Current Condition Start: 06/29/22 16:47 Freq: Status: Active Protocol: Document 06/29/22 15:15 DCW (Rec: 07/02/22 09:40 DCW [id number]) Current Condition History of Current Condition Onset Date Multi-year history Current Complaints Falls, imbalance, weakness History of Current Condition Pt is a 76 year old male presenting with a multi-year history of imbalance, falls, and weakness who is three months s/p official diagnosis of Parkinson's disease. Pt reports he has fallen five times over the last year, four of which have been within the past three months, but notes that none of the falls have been serious. Pt uses SPC and FWW for ambulation most of the time, but finds them annoying, tries to get around without it, but uses his ADs for any kind of distance. Pt reports he was struggling both with dizziness and initiating movement, but has benefitted greatly from starting L-dopa. Treatment Goals Patient/Caregiver Goals I want to get more strength in my legs and get better balance. PT-OP-C Subjective Start: 06/29/22 16:47 Freq: Status: Active Protocol: Document 08/08/22 12:03 DCW (Rec: 08/08/22 12:44 DCW [id number]) OP-PT Subjective Patient Comments Patient Comments My legs have really been tired when I leave here. I know we incresed the resistance with some of these exercises, I was wondering if we could bump it back down, so I can try to get my legs back under me. PT-OP-D Balance Start: 06/29/22 16:47 Freq: Status: Active Protocol: Document 06/29/22 15:15 DCW (Rec: 06/29/22 16:53 [facility] [id number]) OP-PT Balance Assessment Sitting Balance Static Sitting Balance Ability Normal Dynamic Sitting Balance Ability Normal Standing Balance Static Standing Balance Ability Fair Dynamic Standing Balance Ability Fair Balance Tests Rodriguez Balance Test Rodriguez Balance Test Score 36/56 Rodriguez Impairment Rating 20 to 39% Impaired (Score 34- 44) Rodriguez Balance Assessment Evaluation Sitting to Standing Ability Independent w/Hands Unsupported Stance Supervision- 2 minutes Sitting Unsupported, Feet on Floor Safely- 2 minutes Standing to Sitting Ability Assist, Use Legs on Chair Transfer Ability Safely, Hand Use Unsupported Stance- Eyes Closed 3 seconds Unsupported Stance- Eyes Open Independent, <30 seconds Reaching Forward Standing Safely, 5 inches Pick- Up Object From Floor Supervision Look Behind Shoulder - Standing Turns Sideways Only Turning 360 Degrees Turns slowly, but safely Unsupported Stance, Alternating Feet on 4 Steps w/Supervision Stair Unsupported Tandem Stance Holds Tandem- 30 seconds Unilateral Leg Stance Lifts Leg/Holds > 3 secs Total Score Rodriguez Total Score (out of 56 points) 36 Rodriguez Impairment Rating 20 to 39% Impaired (Score 34- 44) Ellis Fall Scale Copyright Permission PT-OP-E Functional Tests Start: 06/29/22 16:47 Freq: Status: Active Protocol: Document 06/29/22 15:15 DCW (Rec: 06/29/22 16:53 [facility] [id number]) Functional Tests Dynamic Gait Index (DGI) Score 17/24 DGI Impairment Rating 20 to <40% Impaired (Score 15- 19) Timed Up and Go (TUG) Score 22.16 Comments Three-trial average (26.31, 21 .67, 18.49) TUG Impairment Rating 100% Impaired (Score 20) PT-OP-M Strength Start: 06/29/22 16:47 Freq: Status: Active Protocol: Document 06/29/22 15:15 DCW (Rec: 06/29/22 16:53 [facility] [id number]) Hip Strength Hip Manual Muscle Testing Right Flexion (L2) 4 Good Extension (S1) 4- Good- Abduction 4- Good- Adduction 4 Good External Rotation 4 Good Internal Rotation 4 Good Left Flexion (L2) 4- Good- Extension (S1) 4+ Good+ Abduction 4- Good- External Rotation 4 Good Internal Rotation 4 Good Knee Strength Knee Manual Muscle Testing Right Flexion (S2) 4 Good Extension (L3) 4 Good Left Flexion (S2) 4 Good Extension (L3) 4 Good Ankle/Foot Strength Ankle and Foot Manual Muscle Testing Right Dorsiflexion (L4) 4 Good Left Dorsiflexion (L4) 4 Good PT-OP-Q Treatments Start: 06/29/22 16:47 Freq: Status: Active Protocol: Document 08/08/22 12:03 DCW (Rec: 08/08/22 12:44 DCW [id number]) Cardio Equipment Recumbent Elliptical (Biodex) Duration (Minutes) 4 Resistance 3 Seat Position 9 Gym Equipment Shuttle Recovery Unilateral Squats Resistance 37# Shuttle Recovery Platform Stable Reps/Time x20 Bilateral Squats Resistance 62# Shuttle Recovery Platform Stable Reps/Time x20 Shuttle Balance Red Details WBOS, Staggered Comments 1. wt shfit f/b 2. HTs Therapeutic Exercises Standing Exercises Hip Extension Standing Exercise Name Hip Extension Side bilateral Resistance Yellow Reps/Minutes x20 Hip Abduction Standing Exercise Name Hip abduction Side bilateral Resistance Yellow Reps/Minutes x20 Neuro Re-Education Treatment Balance Activities SLS Details SLS Equipment // bars Tandem Stance Details Tandem Stance Equipment // bars Foam Stance Details Foam stance Surface Blue foam Comments EO/EC PT-OP-T Assessment and Plan Start: 06/29/22 16:47 Freq: Status: Active Protocol: Document 08/08/22 12:03 DCW (Rec: 08/08/22 12:44 DCW [id number]) Physical Therapy Assessment Impairments Impairments Activity Tolerance,Balance, Functional Activities, Functional Mobility,Gait, Posture,Soft Tissue Mobility, Strength Goals Three Impairment Pt scores a 22.16 on the TUG Patient Flow Coordinator Goal (LTG) Pt to decrease score on TUG to at most 15 in order to demonstrate increased safety with functional mobility. LTG Duration 09/27/22 Two Impairment Increased falls risk per Rodriguez (36/56) and DGI (17/24) scores Patient Flow Coordinator Goal (LTG) Pt to increase Rodriguez score by at least 10 points to 46/56 in order to demonstrate a decreased risk of falling. LTG Duration 09/27/22 One Impairment Pt does not have an appropriate home exercise program Short Term Goal (STG) Pt to be independent and compliant with an appropriate HEP STG Duration 08/13/22 Assessment Summary Assessment Pt shows improvement on stairs , ascending is fairly easy, while descending, while more difficulty, he reports more control. Overall, good progress with both strength and balance, but still fatigues very easily due to poor activity tolerance, and leg fatigue last long after his PT sessions. Continue to work on getting appropriate work out with hopefully lest lingering fatigue. Physical Therapy Plan Frequency and Duration Frequency of Treatment 2x/Week Plan of Care Start Date 06/29/22 Plan of Care End Date 09/27/22 Therapeutic Interventions Therapeutic Interventions Balance Training,Coordination Training,Gait Training,Home Exercise Program,Manual Therapy,Neuromuscular Re- education,Patient/Caregiver Education,Self-Care/Home Management,Soft Tissue Mobilization,Therapeutic Activities,Therapeutic Exercises Next Visit Focus/Plan Next Note Type Treatment Note Next Visit Plan Continue perturbations Recheck HEP: hip abd, ext AROM, STS. POC: Strengthening, balance and gait training.
--- NOTE | 2022-08-15 12:57 | PT.OTN ---
Current Diagnoses Parkinson's disease (08/15/22) Unsteadiness on feet (08/15/22) Other abnormalities of gait and mobility (08/15/22) Repeated falls (08/15/22) Physical Therapy Treatment Note PT-OP-A Visit Information Start: 06/29/22 16:47 Freq: Status: Active Protocol: Document 08/15/22 12:17 SP (Rec: 08/15/22 12:59 SP [id number]) Out-Patient Physical Therapy Visit Information Visit Information Visit Type Treatment Note Visit Note 06/26 after PN Visit Start Time 12:17 Visit Stop Time 12:57 Total Visit Minutes 40 Visit Number 11 Number of SALES ASSISTANT ENTERTAINMENT AND MEDIA Visits 1 Evaluation Information Evaluation Date 06/29/22 PT-OP-B Current Condition Start: 06/29/22 16:47 Freq: Status: Active Protocol: Document 06/29/22 15:15 DCW (Rec: 07/02/22 09:40 DCW [id number]) Current Condition History of Current Condition Onset Date Multi-year history Current Complaints Falls, imbalance, weakness History of Current Condition Pt is a 76 year old male presenting with a multi-year history of imbalance, falls, and weakness who is three months s/p official diagnosis of Parkinson's disease. Pt reports he has fallen five times over the last year, four of which have been within the past three months, but notes that none of the falls have been serious. Pt uses SPC and FWW for ambulation most of the time, but finds them annoying, tries to get around without it, but uses his ADs for any kind of distance. Pt reports he was struggling both with dizziness and initiating movement, but has benefitted greatly from starting L-dopa. Treatment Goals Patient/Caregiver Goals I want to get more strength in my legs and get better balance. PT-OP-C Subjective Start: 06/29/22 16:47 Freq: Status: Active Protocol: Document 08/15/22 12:17 SP (Rec: 08/15/22 12:59 SP [id number]) OP-PT Subjective Patient Comments Patient Comments Pt reports felt fine after last tx with lower resistance. HEP: deep knee bends contact rail, hip ext/abd but no bands due to hard get band on self, heel raises. PT-OP-D Balance Start: 06/29/22 16:47 Freq: Status: Active Protocol: Document 06/29/22 15:15 DCW (Rec: 06/29/22 16:53 [facility] [id number]) OP-PT Balance Assessment Sitting Balance Static Sitting Balance Ability Normal Dynamic Sitting Balance Ability Normal Standing Balance Static Standing Balance Ability Fair Dynamic Standing Balance Ability Fair Balance Tests Rodriguez Balance Test Rodriguez Balance Test Score 36/56 Rodriguez Impairment Rating 20 to 39% Impaired (Score 34- 44) Rodriguez Balance Assessment Evaluation Sitting to Standing Ability Independent w/Hands Unsupported Stance Supervision- 2 minutes Sitting Unsupported, Feet on Floor Safely- 2 minutes Standing to Sitting Ability Assist, Use Legs on Chair Transfer Ability Safely, Hand Use Unsupported Stance- Eyes Closed 3 seconds Unsupported Stance- Eyes Open Independent, <30 seconds Reaching Forward Standing Safely, 5 inches Pick- Up Object From Floor Supervision Look Behind Shoulder - Standing Turns Sideways Only Turning 360 Degrees Turns slowly, but safely Unsupported Stance, Alternating Feet on 4 Steps w/Supervision Stair Unsupported Tandem Stance Holds Tandem- 30 seconds Unilateral Leg Stance Lifts Leg/Holds > 3 secs Total Score Rodriguez Total Score (out of 56 points) 36 Rodriguez Impairment Rating 20 to 39% Impaired (Score 34- 44) Ellis Fall Scale Copyright Permission PT-OP-E Functional Tests Start: 06/29/22 16:47 Freq: Status: Active Protocol: Document 06/29/22 15:15 DCW (Rec: 06/29/22 16:53 [facility] [id number]) Functional Tests Dynamic Gait Index (DGI) Score 17/24 DGI Impairment Rating 20 to <40% Impaired (Score 15- 19) Timed Up and Go (TUG) Score 22.16 Comments Three-trial average (26.31, 21 .67, 18.49) TUG Impairment Rating 100% Impaired (Score 20) PT-OP-M Strength Start: 06/29/22 16:47 Freq: Status: Active Protocol: Document 06/29/22 15:15 DCW (Rec: 06/29/22 16:53 [facility] [id number]) Hip Strength Hip Manual Muscle Testing Right Flexion (L2) 4 Good Extension (S1) 4- Good- Abduction 4- Good- Adduction 4 Good External Rotation 4 Good Internal Rotation 4 Good Left Flexion (L2) 4- Good- Extension (S1) 4+ Good+ Abduction 4- Good- External Rotation 4 Good Internal Rotation 4 Good Knee Strength Knee Manual Muscle Testing Right Flexion (S2) 4 Good Extension (L3) 4 Good Left Flexion (S2) 4 Good Extension (L3) 4 Good Ankle/Foot Strength Ankle and Foot Manual Muscle Testing Right Dorsiflexion (L4) 4 Good Left Dorsiflexion (L4) 4 Good PT-OP-Q Treatments Start: 06/29/22 16:47 Freq: Status: Active Protocol: Document 08/15/22 12:17 SP (Rec: 08/15/22 12:59 SP [id number]) Cardio Equipment Recumbent Stepper (Sci-Fit) Duration (Minutes) 7 Resistance 3 Seat Position 10 Other LEs only, 50 RPMs, 0.86 miles Gym Equipment Shuttle Recovery Unilateral Squats Resistance 37# Shuttle Recovery Platform Stable Reps/Time x20 Bilateral Squats Resistance 62# Shuttle Recovery Platform Stable Reps/Time x20 Therapeutic Exercises Standing Exercises Hamstring curls Standing Exercise Name Hamstring curls Side bilateral Resistance 4# Reps/Minutes 2x10 Comments cued knees // Toe-taps Standing Exercise Name Toe-taps Side bilateral Resistance 4# leg wt Equipment Used 6 step Reps/Minutes 2x10 reps Comments cued soft con/eccentric LE positioning Neuro Re-Education Treatment Balance Activities perturbations Details isometric trunk wt shifting and recovery removal Equipment back, heels to wall Reps/Duration 2 min Comments CGA, fwd/lateral- able self recover improvement self corrections stabililty Foam Stance Details WBOS, NBOS, Stagger stance Surface Blue foam Comments 1. HTs EO 2.EC 30 S WBOS, NBOS, stagger LLE fwd, 27sec RLE fwd sways but self recovery. PT-OP-T Assessment and Plan Start: 06/29/22 16:47 Freq: Status: Active Protocol: Document 08/15/22 12:17 SP (Rec: 08/15/22 12:59 SP [id number]) Physical Therapy Assessment Goals Three Impairment Pt scores a 22.16 on the TUG Can Stacker Goal (LTG) Pt to decrease score on TUG to at most 15 in order to demonstrate increased safety with functional mobility. LTG Duration 09/27/22 Two Impairment Increased falls risk per Rodriguez (36/56) and DGI () scores Mcfp Goal (LTG) Pt to increase Rodriguez score by at least 10 points to 46/56 in order to demonstrate a decreased risk of falling. LTG Duration 09/27/22 One Impairment Pt does not have an appropriate home exercise program Short Term Goal (STG) Pt to be independent and compliant with an appropriate HEP STG Duration 08/13/22 Assessment Summary Assessment Pt good effort and balance recovery during perturbations and able increase EO 27-30 sec . Improved heel toe and more wt shifted into forefoot leaving vs into heels upon arrival. Physical Therapy Plan Frequency and Duration Frequency of Treatment 2x/Week Plan of Care Start Date 06/29/22 Plan of Care End Date 09/27/22 Therapeutic Interventions Therapeutic Interventions Balance Training,Coordination Training,Gait Training,Home Exercise Program,Manual Therapy,Neuromuscular Re- education,Patient/Caregiver Education,Self-Care/Home Management,Soft Tissue Mobilization,Therapeutic Activities,Therapeutic Exercises Next Visit Focus/Plan Next Note Type Treatment Note Next Visit Plan Continue perturbations HEP: hip abd, ext resistance in PT, STS uneven surface. Next tandem walk. POC: Strengthening, balance and gait training.
--- NOTE | 2022-08-20 14:30 | PT.OTN ---
Current Diagnoses Parkinson's disease (08/20/22) Unsteadiness on feet (08/20/22) Other abnormalities of gait and mobility (08/20/22) Repeated falls (08/20/22) Physical Therapy Treatment Note PT-OP-A Visit Information Start: 06/29/22 16:47 Freq: Status: Active Protocol: Document 08/20/22 13:49 SP (Rec: 08/20/22 14:32 SP [id number]) Out-Patient Physical Therapy Visit Information Visit Information Visit Type Treatment Note Visit Note 07/27 after PN Visit Start Time 13:49 Visit Stop Time 14:30 Total Visit Minutes 41 Visit Number 12 Number of ANIMAL KEEPER Visits 2 Evaluation Information Evaluation Date 06/29/22 PT-OP-B Current Condition Start: 06/29/22 16:47 Freq: Status: Active Protocol: Document 06/29/22 15:15 DCW (Rec: 07/02/22 09:40 DCW [id number]) Current Condition History of Current Condition Onset Date Multi-year history Current Complaints Falls, imbalance, weakness History of Current Condition Pt is a 76 year old male presenting with a multi-year history of imbalance, falls, and weakness who is three months s/p official diagnosis of Parkinson's disease. Pt reports he has fallen five times over the last year, four of which have been within the past three months, but notes that none of the falls have been serious. Pt uses SPC and FWW for ambulation most of the time, but finds them annoying, tries to get around without it, but uses his ADs for any kind of distance. Pt reports he was struggling both with dizziness and initiating movement, but has benefitted greatly from starting L-dopa. Treatment Goals Patient/Caregiver Goals I want to get more strength in my legs and get better balance. PT-OP-C Subjective Start: 06/29/22 16:47 Freq: Status: Active Protocol: Document 08/20/22 13:49 SP (Rec: 08/20/22 14:32 SP [id number]) OP-PT Subjective Patient Comments Patient Comments Pt reports did well after last tx. He reportd may need to cancel next appt and needs more scheduled into September. He demonstrates RADHA more retro in heels with rounded posture, light pressure use on hurry cane. PT-OP-D Balance Start: 06/29/22 16:47 Freq: Status: Active Protocol: Document 06/29/22 15:15 DCW (Rec: 06/29/22 16:53 [facility] [id number]) OP-PT Balance Assessment Sitting Balance Static Sitting Balance Ability Normal Dynamic Sitting Balance Ability Normal Standing Balance Static Standing Balance Ability Fair Dynamic Standing Balance Ability Fair Balance Tests Rodriguez Balance Test Rodriguez Balance Test Score 36/56 Rodriguez Impairment Rating 20 to 39% Impaired (Score 34- 44) Rodriguez Balance Assessment Evaluation Sitting to Standing Ability Independent w/Hands Unsupported Stance Supervision- 2 minutes Sitting Unsupported, Feet on Floor Safely- 2 minutes Standing to Sitting Ability Assist, Use Legs on Chair Transfer Ability Safely, Hand Use Unsupported Stance- Eyes Closed 3 seconds Unsupported Stance- Eyes Open Independent, <30 seconds Reaching Forward Standing Safely, 5 inches Pick- Up Object From Floor Supervision Look Behind Shoulder - Standing Turns Sideways Only Turning 360 Degrees Turns slowly, but safely Unsupported Stance, Alternating Feet on 4 Steps w/Supervision Stair Unsupported Tandem Stance Holds Tandem- 30 seconds Unilateral Leg Stance Lifts Leg/Holds > 3 secs Total Score Rodriguez Total Score (out of 56 points) 36 Rodriguez Impairment Rating 20 to 39% Impaired (Score 34- 44) Ellis Fall Scale Copyright Permission PT-OP-E Functional Tests Start: 06/29/22 16:47 Freq: Status: Active Protocol: Document 06/29/22 15:15 DCW (Rec: 06/29/22 16:53 [facility] [id number]) Functional Tests Dynamic Gait Index (DGI) Score 17/24 DGI Impairment Rating 20 to <40% Impaired (Score 15- 19) Timed Up and Go (TUG) Score 22.16 Comments Three-trial average (26.31, 21 .67, 18.49) TUG Impairment Rating 100% Impaired (Score 20) PT-OP-M Strength Start: 06/29/22 16:47 Freq: Status: Active Protocol: Document 06/29/22 15:15 DCW (Rec: 06/29/22 16:53 [facility] [id number]) Hip Strength Hip Manual Muscle Testing Right Flexion (L2) 4 Good Extension (S1) 4- Good- Abduction 4- Good- Adduction 4 Good External Rotation 4 Good Internal Rotation 4 Good Left Flexion (L2) 4- Good- Extension (S1) 4+ Good+ Abduction 4- Good- External Rotation 4 Good Internal Rotation 4 Good Knee Strength Knee Manual Muscle Testing Right Flexion (S2) 4 Good Extension (L3) 4 Good Left Flexion (S2) 4 Good Extension (L3) 4 Good Ankle/Foot Strength Ankle and Foot Manual Muscle Testing Right Dorsiflexion (L4) 4 Good Left Dorsiflexion (L4) 4 Good PT-OP-Q Treatments Start: 06/29/22 16:47 Freq: Status: Active Protocol: Document 08/20/22 13:49 SP (Rec: 08/20/22 14:32 SP [id number]) Cardio Equipment Recumbent Stepper (Sci-Fit) Duration (Minutes) 7 Resistance 3> 3.5 Seat Position 10 Other LEs only, 50 Lv 3> 45 to 50 RPMs lv 3.5, 0.86 miles Gym Equipment Shuttle Recovery Unilateral Squats Resistance 37# Shuttle Recovery Platform Stable Reps/Time x20 Bilateral Squats Details cued // feet Resistance 62# Shuttle Recovery Platform Stable Reps/Time x20 Neuro Re-Education Treatment Balance Activities balance beam Details step fwd/bkwd/ lateral Equipment 2 beams end to end Reps/Duration x2 laps each direction Comments cued posture, core, soft stepping, slower pacing improved stability squat cone ball transfer Details cross body reach/placement ball on cones at side feet Equipment 10 cones, 5 golf balls, pods x4 replaced cones Reps/Duration 8 min Comments improved squat form (buttocks back, full foot WB). CG- 10%A as needed PT-OP-T Assessment and Plan Start: 06/29/22 16:47 Freq: Status: Active Protocol: Document 08/20/22 13:49 SP (Rec: 08/20/22 14:32 SP [id number]) Physical Therapy Assessment Goals Three Impairment Pt scores a 22.16 on the TUG Drivematic Machine Operator Goal (LTG) Pt to decrease score on TUG to at most 15 in order to demonstrate increased safety with functional mobility. LTG Duration 09/27/22 Two Impairment Increased falls risk per Rodriguez (36/56) and DGI (17/24) scores Nursing Home Goal (LTG) Pt to increase Rodriguez score by at least 10 points to 46/56 in order to demonstrate a decreased risk of falling. LTG Duration 09/27/22 One Impairment Pt does not have an appropriate home exercise program Short Term Goal (STG) Pt to be independent and compliant with an appropriate HEP 08/20/22: HEP: hip abd, ext ( AROM can't get band on self), STS. STG Duration 08/13/22 progressing 08/20/22 Assessment Summary Assessment Improved WBOS squat reaching for objects 3-6 from floor progress balance/stability for safety picking up items if fall on floor. Improved SLS time stepping over balance beam, less sway with cues for posturing and soft stepping. Pt improved WB into forefoot with squat activity, noted increase more forward posturing and heel toe walking and just contact hurry cane needed leaving. Discussed will work on squat picking up items off pods/cones/floor in PT for safety at this time, verbalized understanding. Physical Therapy Plan Frequency and Duration Frequency of Treatment 2x/Week Plan of Care Start Date 06/29/22 Plan of Care End Date 09/27/22 Therapeutic Interventions Therapeutic Interventions Balance Training,Coordination Training,Gait Training,Home Exercise Program,Manual Therapy,Neuromuscular Re- education,Patient/Caregiver Education,Self-Care/Home Management,Soft Tissue Mobilization,Therapeutic Activities,Therapeutic Exercises Next Visit Focus/Plan Next Note Type Treatment Note Next Visit Plan Continue squat ball/cone transfer in PT, perturbations, add more gait activities, wants more can do at home as HEP. Next add tandem walk. POC: Strengthening, balance and gait training.
--- NOTE | 2022-08-27 15:59 | PT.OTN ---
Current Diagnoses Parkinson's disease (08/27/22) Unsteadiness on feet (08/27/22) Other abnormalities of gait and mobility (08/27/22) Repeated falls (08/27/22) Physical Therapy Treatment Note PT-OP-A Visit Information Start: 06/29/22 16:47 Freq: Status: Active Protocol: Document 08/27/22 15:15 DCW (Rec: 08/27/22 15:59 DCW [id number]) Out-Patient Physical Therapy Visit Information Visit Information Visit Type Treatment Note Visit Note 08/24 after PN Visit Start Time 15:15 Visit Stop Time 16:00 Total Visit Minutes 45 Visit Number 13 Number of PRODUCE RUNNER Visits 0 Evaluation Information Evaluation Date 06/29/22 PT-OP-B Current Condition Start: 06/29/22 16:47 Freq: Status: Active Protocol: Document 06/29/22 15:15 DCW (Rec: 07/02/22 09:40 DCW [id number]) Current Condition History of Current Condition Onset Date Multi-year history Current Complaints Falls, imbalance, weakness History of Current Condition Pt is a 76 year old male presenting with a multi-year history of imbalance, falls, and weakness who is three months s/p official diagnosis of Parkinson's disease. Pt reports he has fallen five times over the last year, four of which have been within the past three months, but notes that none of the falls have been serious. Pt uses SPC and FWW for ambulation most of the time, but finds them annoying, tries to get around without it, but uses his ADs for any kind of distance. Pt reports he was struggling both with dizziness and initiating movement, but has benefitted greatly from starting L-dopa. Treatment Goals Patient/Caregiver Goals I want to get more strength in my legs and get better balance. PT-OP-C Subjective Start: 06/29/22 16:47 Freq: Status: Active Protocol: Document 08/27/22 15:15 DCW (Rec: 08/27/22 15:59 DCW [id number]) OP-PT Subjective Patient Comments Patient Comments Pt continues to feel very weak in run down in his legs, especially following his PT visits. Does note that he has been much better tolerating showering and also more confident on stairs, although they're still one of his more difficult activities. PT-OP-D Balance Start: 06/29/22 16:47 Freq: Status: Active Protocol: Document 06/29/22 15:15 DCW (Rec: 06/29/22 16:53 [facility] [id number]) OP-PT Balance Assessment Sitting Balance Static Sitting Balance Ability Normal Dynamic Sitting Balance Ability Normal Standing Balance Static Standing Balance Ability Fair Dynamic Standing Balance Ability Fair Balance Tests Rodriguez Balance Test Rodriguez Balance Test Score 36/56 Rodriguez Impairment Rating 20 to 39% Impaired (Score 34- 44) Rodriguez Balance Assessment Evaluation Sitting to Standing Ability Independent w/Hands Unsupported Stance Supervision- 2 minutes Sitting Unsupported, Feet on Floor Safely- 2 minutes Standing to Sitting Ability Assist, Use Legs on Chair Transfer Ability Safely, Hand Use Unsupported Stance- Eyes Closed 3 seconds Unsupported Stance- Eyes Open Independent, <30 seconds Reaching Forward Standing Safely, 5 inches Pick- Up Object From Floor Supervision Look Behind Shoulder - Standing Turns Sideways Only Turning 360 Degrees Turns slowly, but safely Unsupported Stance, Alternating Feet on 4 Steps w/Supervision Stair Unsupported Tandem Stance Holds Tandem- 30 seconds Unilateral Leg Stance Lifts Leg/Holds > 3 secs Total Score Rodriguez Total Score (out of 56 points) 36 Rodriguez Impairment Rating 20 to 39% Impaired (Score 34- 44) Ellis Fall Scale Copyright Permission PT-OP-E Functional Tests Start: 06/29/22 16:47 Freq: Status: Active Protocol: Document 06/29/22 15:15 DCW (Rec: 06/29/22 16:53 [facility] [id number]) Functional Tests Dynamic Gait Index (DGI) Score 17/24 DGI Impairment Rating 20 to <40% Impaired (Score 15- 19) Timed Up and Go (TUG) Score 22.16 Comments Three-trial average (26.31, 21 .67, 18.49) TUG Impairment Rating 100% Impaired (Score 20) PT-OP-M Strength Start: 06/29/22 16:47 Freq: Status: Active Protocol: Document 06/29/22 15:15 DCW (Rec: 06/29/22 16:53 [facility] [id number]) Hip Strength Hip Manual Muscle Testing Right Flexion (L2) 4 Good Extension (S1) 4- Good- Abduction 4- Good- Adduction 4 Good External Rotation 4 Good Internal Rotation 4 Good Left Flexion (L2) 4- Good- Extension (S1) 4+ Good+ Abduction 4- Good- External Rotation 4 Good Internal Rotation 4 Good Knee Strength Knee Manual Muscle Testing Right Flexion (S2) 4 Good Extension (L3) 4 Good Left Flexion (S2) 4 Good Extension (L3) 4 Good Ankle/Foot Strength Ankle and Foot Manual Muscle Testing Right Dorsiflexion (L4) 4 Good Left Dorsiflexion (L4) 4 Good PT-OP-Q Treatments Start: 06/29/22 16:47 Freq: Status: Active Protocol: Document 08/27/22 15:15 DCW (Rec: 08/27/22 15:59 DCW [id number]) Cardio Equipment Recumbent Stepper (Sci-Fit) Duration (Minutes) 6 Resistance 3.5 Seat Position 10 Gym Equipment Shuttle Recovery Unilateral Squats Resistance 37# Shuttle Recovery Platform Unstable Reps/Time x20 Bilateral Squats Details cued // feet Resistance 62# Shuttle Recovery Platform Unstable Reps/Time x20 Neuro Re-Education Treatment Balance Activities step ups Details Step ups/downs Surface 6 step Equipment // bars Comments [id number] Hurdles Details Hurdles Equipment // bars, PRN bar contact Comments Fwd, side-stepping Foam Stance Details WBOS, Stagger stance Surface Blue foam Comments WBOS: Head turns, EO/EC Staggered PT-OP-T Assessment and Plan Start: 06/29/22 16:47 Freq: Status: Active Protocol: Document 08/27/22 15:15 DCW (Rec: 08/27/22 15:59 DCW [id number]) Physical Therapy Assessment Goals Three Impairment Pt scores a 22.16 on the TUG Garden Implement Mechanic Goal (LTG) Pt to decrease score on TUG to at most 15 in order to demonstrate increased safety with functional mobility. LTG Duration 09/27/22 Two Impairment Increased falls risk per Rodriguez (36/56) and DGI (17/24) scores Garden Implement Mechanic Goal (LTG) Pt to increase Rodriguez score by at least 10 points to 46/56 in order to demonstrate a decreased risk of falling. LTG Duration 09/27/22 One Impairment Pt does not have an appropriate home exercise program Short Term Goal (STG) Pt to be independent and compliant with an appropriate HEP 08/20/22: HEP: hip abd, ext ( AROM can't get band on self), STS. STG Duration 08/13/22 progressing 08/20/22 Assessment Summary Assessment Pt noting increased confidence in most activities, especially showering and stairs. Had difficulty with stepping up and over 6 step, but noted that it was a really good workout. Continue to focus on challenging balance and improving activity tolerance. Physical Therapy Plan Frequency and Duration Frequency of Treatment 2x/Week Plan of Care Start Date 06/29/22 Plan of Care End Date 09/27/22 Therapeutic Interventions Therapeutic Interventions Balance Training,Coordination Training,Gait Training,Home Exercise Program,Manual Therapy,Neuromuscular Re- education,Patient/Caregiver Education,Self-Care/Home Management,Soft Tissue Mobilization,Therapeutic Activities,Therapeutic Exercises Next Visit Focus/Plan Next Note Type Treatment Note Next Visit Plan Continue squat ball/cone transfer in PT, perturbations, add more gait activities, wants more can do at home as HEP. Next add tandem walk. POC: Strengthening, balance and gait training.
--- NOTE | 2022-09-03 17:33 | PT.OTN ---
Current Diagnoses Parkinson's disease (09/03/22) Unsteadiness on feet (09/03/22) Other abnormalities of gait and mobility (09/03/22) Repeated falls (09/03/22) Physical Therapy Treatment Note PT-OP-A Visit Information Start: 06/29/22 16:47 Freq: Status: Active Protocol: Document 09/03/22 16:45 DCW (Rec: 09/03/22 17:33 DCW [id number]) Out-Patient Physical Therapy Visit Information Visit Information Visit Type Treatment Note Visit Note 09/24 after PN Visit Start Time 16:45 Visit Stop Time 17:30 Total Visit Minutes 45 Visit Number 14 Number of FLIGHT DYNAMICIST Visits 0 Evaluation Information Evaluation Date 06/29/22 PT-OP-B Current Condition Start: 06/29/22 16:47 Freq: Status: Active Protocol: Document 06/29/22 15:15 DCW (Rec: 07/02/22 09:40 DCW [id number]) Current Condition History of Current Condition Onset Date Multi-year history Current Complaints Falls, imbalance, weakness History of Current Condition Pt is a 76 year old male presenting with a multi-year history of imbalance, falls, and weakness who is three months s/p official diagnosis of Parkinson's disease. Pt reports he has fallen five times over the last year, four of which have been within the past three months, but notes that none of the falls have been serious. Pt uses SPC and FWW for ambulation most of the time, but finds them annoying, tries to get around without it, but uses his ADs for any kind of distance. Pt reports he was struggling both with dizziness and initiating movement, but has benefitted greatly from starting L-dopa. Treatment Goals Patient/Caregiver Goals I want to get more strength in my legs and get better balance. PT-OP-C Subjective Start: 06/29/22 16:47 Freq: Status: Active Protocol: Document 09/03/22 16:45 DCW (Rec: 09/03/22 17:33 DCW [id number]) OP-PT Subjective Patient Comments Patient Comments My legs are feeling pretty unsteady today. PT-OP-D Balance Start: 06/29/22 16:47 Freq: Status: Active Protocol: Document 06/29/22 15:15 DCW (Rec: 06/29/22 16:53 DCW [id number]) OP-PT Balance Assessment Sitting Balance Static Sitting Balance Ability Normal Dynamic Sitting Balance Ability Normal Standing Balance Static Standing Balance Ability Fair Dynamic Standing Balance Ability Fair Balance Tests Rodriguez Balance Test Rodriguez Balance Test Score 36/56 Rodriguez Impairment Rating 20 to 39% Impaired (Score 34- 44) Rodriguez Balance Assessment Evaluation Sitting to Standing Ability Independent w/Hands Unsupported Stance Supervision- 2 minutes Sitting Unsupported, Feet on Floor Safely- 2 minutes Standing to Sitting Ability Assist, Use Legs on Chair Transfer Ability Safely, Hand Use Unsupported Stance- Eyes Closed 3 seconds Unsupported Stance- Eyes Open Independent, <30 seconds Reaching Forward Standing Safely, 5 inches Pick- Up Object From Floor Supervision Look Behind Shoulder - Standing Turns Sideways Only Turning 360 Degrees Turns slowly, but safely Unsupported Stance, Alternating Feet on 4 Steps w/Supervision Stair Unsupported Tandem Stance Holds Tandem- 30 seconds Unilateral Leg Stance Lifts Leg/Holds > 3 secs Total Score Rodriguez Total Score (out of 56 points) 36 Rodriugez Impairment Rating 20 to 39% Impaired (Score 34- 44) Ellis Fall Scale Copyright Permission PT-OP-E Functional Tests Start: 06/29/22 16:47 Freq: Status: Active Protocol: Document 06/29/22 15:15 DCW (Rec: 06/29/22 16:53 [facility] [id number]) Functional Tests Dynamic Gait Index (DGI) Score 17/24 DGI Impairment Rating 20 to <40% Impaired (Score 15- 19) Timed Up and Go (TUG) Score 22.16 Comments Three-trial average (26.31, 21 .67, 18.49) TUG Impairment Rating 100% Impaired (Score 20) PT-OP-M Strength Start: 06/29/22 16:47 Freq: Status: Active Protocol: Document 06/29/22 15:15 DCW (Rec: 06/29/22 16:53 [facility] [id number]) Hip Strength Hip Manual Muscle Testing Right Flexion (L2) 4 Good Extension (S1) 4- Good- Abduction 4- Good- Adduction 4 Good External Rotation 4 Good Internal Rotation 4 Good Left Flexion (L2) 4- Good- Extension (S1) 4+ Good+ Abduction 4- Good- External Rotation 4 Good Internal Rotation 4 Good Knee Strength Knee Manual Muscle Testing Right Flexion (S2) 4 Good Extension (L3) 4 Good Left Flexion (S2) 4 Good Extension (L3) 4 Good Ankle/Foot Strength Ankle and Foot Manual Muscle Testing Right Dorsiflexion (L4) 4 Good Left Dorsiflexion (L4) 4 Good PT-OP-Q Treatments Start: 06/29/22 16:47 Freq: Status: Active Protocol: Document 09/03/22 16:45 DCW (Rec: 09/03/22 17:33 DCW [id number]) Cardio Equipment Recumbent Stepper (Sci-Fit) Duration (Minutes) 6 Resistance 3.5 Seat Position 10 Gym Equipment Shuttle Recovery Unilateral Squats Resistance 37# Shuttle Recovery Platform Unstable Reps/Time x20 Bilateral Squats Details cued // feet Resistance 62# Shuttle Recovery Platform Unstable Reps/Time x20 Therapeutic Exercises Standing Exercises Toe-taps Standing Exercise Name Toe-taps on cones - semicircular pattern Side bilateral Neuro Re-Education Treatment Balance Activities squat cone ball transfer Details cross body reach/placement ball on cones at side feet Equipment 10 cones, 5 golf balls Reps/Duration 8 min Hurdles Details Hurdles Equipment // bars, PRN bar contact Comments Fwd, side-stepping SLS Details SLS Equipment // bars Foam Stance Details Stagger stance Surface Blue foam Comments EO/EC Staggered PT-OP-T Assessment and Plan Start: 06/29/22 16:47 Freq: Status: Active Protocol: Document 09/03/22 16:45 DCW (Rec: 09/03/22 17:33 DCW [id number]) Physical Therapy Assessment Impairments Impairments Activity Tolerance,Balance, Functional Activities, Functional Mobility,Gait, Posture,Soft Tissue Mobility, Strength Goals Three Impairment Pt scores a 22.16 on the TUG Aerodynamics Teacher Goal (LTG) Pt to decrease score on TUG to at most 15 in order to demonstrate increased safety with functional mobility. LTG Duration 09/27/22 Two Impairment Increased falls risk per Rodriguez (36/56) and DGI (17/24) scores Aerodynamics Teacher Goal (LTG) Pt to increase Rodriguez score by at least 10 points to 46/56 in order to demonstrate a decreased risk of falling. LTG Duration 09/27/22 One Impairment Pt does not have an appropriate home exercise program Short Term Goal (STG) Pt to be independent and compliant with an appropriate HEP 08/20/22: HEP: hip abd, ext ( AROM can't get band on self), STS. STG Duration 08/13/22 progressing 08/20/22 Assessment Summary Assessment Pt struggled some with increased balance challenges, especially toe-tapping on cones, but overall tolerated very well. Physical Therapy Plan Frequency and Duration Frequency of Treatment 2x/Week Plan of Care Start Date 06/29/22 Plan of Care End Date 09/27/22 Therapeutic Interventions Therapeutic Interventions Balance Training,Coordination Training,Gait Training,Home Exercise Program,Manual Therapy,Neuromuscular Re- education,Patient/Caregiver Education,Self-Care/Home Management,Soft Tissue Mobilization,Therapeutic Activities,Therapeutic Exercises Next Visit Focus/Plan Next Note Type Treatment Note Next Visit Plan Continue squat ball/cone transfer in PT, perturbations, add more gait activities, wants more can do at home as HEP. Next add tandem walk. POC: Strengthening, balance and gait training.
--- NOTE | 2022-09-17 15:20 | PT.OTN ---
Current Diagnoses Parkinson's disease (09/17/22) Unsteadiness on feet (09/17/22) Other abnormalities of gait and mobility (09/17/22) Repeated falls (09/17/22) Physical Therapy Treatment Note PT-OP-A Visit Information Start: 06/29/22 16:47 Freq: Status: Active Protocol: Document 09/17/22 14:30 DCW (Rec: 09/17/22 15:19 DCW [id number]) Out-Patient Physical Therapy Visit Information Visit Information Visit Type Treatment Note Visit Note 10/24 after PN Visit Start Time 14:30 Visit Stop Time 15:15 Total Visit Minutes 45 Visit Number 15 Number of TECHNICAL DOCUMENT WRITER Visits 0 Evaluation Information Evaluation Date 06/29/22 PT-OP-B Current Condition Start: 06/29/22 16:47 Freq: Status: Active Protocol: Document 06/29/22 15:15 DCW (Rec: 07/02/22 09:40 DCW [id number]) Current Condition History of Current Condition Onset Date Multi-year history Current Complaints Falls, imbalance, weakness History of Current Condition Pt is a 76 year old male presenting with a multi-year history of imbalance, falls, and weakness who is three months s/p official diagnosis of Parkinson's disease. Pt reports he has fallen five times over the last year, four of which have been within the past three months, but notes that none of the falls have been serious. Pt uses SPC and FWW for ambulation most of the time, but finds them annoying, tries to get around without it, but uses his ADs for any kind of distance. Pt reports he was struggling both with dizziness and initiating movement, but has benefitted greatly from starting L-dopa. Treatment Goals Patient/Caregiver Goals I want to get more strength in my legs and get better balance. PT-OP-C Subjective Start: 06/29/22 16:47 Freq: Status: Active Protocol: Document 09/17/22 14:30 DCW (Rec: 09/17/22 15:19 DCW [id number]) OP-PT Subjective Patient Comments Patient Comments Pt feeling pretty good today. PT-OP-D Balance Start: 06/29/22 16:47 Freq: Status: Active Protocol: Document 06/29/22 15:15 DCW (Rec: 06/29/22 16:53 DCW [id number]) OP-PT Balance Assessment Sitting Balance Static Sitting Balance Ability Normal Dynamic Sitting Balance Ability Normal Standing Balance Static Standing Balance Ability Fair Dynamic Standing Balance Ability Fair Balance Tests Rodriguez Balance Test Rodriguez Balance Test Score 36/56 Rodriguez Impairment Rating 20 to 39% Impaired (Score 34- 44) Rodriguez Balance Assessment Evaluation Sitting to Standing Ability Independent w/Hands Unsupported Stance Supervision- 2 minutes Sitting Unsupported, Feet on Floor Safely- 2 minutes Standing to Sitting Ability Assist, Use Legs on Chair Transfer Ability Safely, Hand Use Unsupported Stance- Eyes Closed 3 seconds Unsupported Stance- Eyes Open Independent, <30 seconds Reaching Forward Standing Safely, 5 inches Pick- Up Object From Floor Supervision Look Behind Shoulder - Standing Turns Sideways Only Turning 360 Degrees Turns slowly, but safely Unsupported Stance, Alternating Feet on 4 Steps w/Supervision Stair Unsupported Tandem Stance Holds Tandem- 30 seconds Unilateral Leg Stance Lifts Leg/Holds > 3 secs Total Score Rodriguez Total Score (out of 56 points) 36 Rodriguez Impairment Rating 20 to 39% Impaired (Score 34- 44) Ellis Fall Scale Copyright Permission PT-OP-E Functional Tests Start: 06/29/22 16:47 Freq: Status: Active Protocol: Document 09/17/22 14:30 DCW (Rec: 09/17/22 15:20 DCW [id number]) Functional Tests Dynamic Gait Index (DGI) Score 22/24 DGI Impairment Rating 1 to <20% Impaired (Score 20- 23) Timed Up and Go (TUG) Score 12.32 Comments Three-trial average (13.38, 12 .09, 11.49) TUG Impairment Rating 20 to <40% Impaired (Score 12- 13) PT-OP-M Strength Start: 06/29/22 16:47 Freq: Status: Active Protocol: Document 06/29/22 15:15 DCW (Rec: 06/29/22 16:53 DCW [id number]) Hip Strength Hip Manual Muscle Testing Right Flexion (L2) 4 Good Extension (S1) 4- Good- Abduction 4- Good- Adduction 4 Good External Rotation 4 Good Internal Rotation 4 Good Left Flexion (L2) 4- Good- Extension (S1) 4+ Good+ Abduction 4- Good- External Rotation 4 Good Internal Rotation 4 Good Knee Strength Knee Manual Muscle Testing Right Flexion (S2) 4 Good Extension (L3) 4 Good Left Flexion (S2) 4 Good Extension (L3) 4 Good Ankle/Foot Strength Ankle and Foot Manual Muscle Testing Right Dorsiflexion (L4) 4 Good Left Dorsiflexion (L4) 4 Good PT-OP-Q Treatments Start: 06/29/22 16:47 Freq: Status: Active Protocol: Document 09/17/22 14:30 DCW (Rec: 09/17/22 15:19 DCW [id number]) Cardio Equipment Recumbent Elliptical (Biodex) Duration (Minutes) 6 Resistance 4 Seat Position 9 Gym Equipment Shuttle Recovery Unilateral Squats Resistance 37# Shuttle Recovery Platform Unstable Reps/Time x20 Bilateral Squats Resistance 62# Shuttle Recovery Platform Unstable Reps/Time x20 Shuttle Balance Red Details WBOS, Staggered Comments 1. WBOS: EO/EC 2. Staggered: Head Turns PT-OP-T Assessment and Plan Start: 06/29/22 16:47 Freq: Status: Active Protocol: Document 09/17/22 14:30 DCW (Rec: 09/17/22 15:19 DCW [id number]) Physical Therapy Assessment Impairments Impairments Activity Tolerance,Balance, Functional Activities, Functional Mobility,Gait, Posture,Soft Tissue Mobility, Strength Goals Three Impairment Pt scores a 22.16 on the TUG Custodial Goal (LTG) Pt to decrease score on TUG to at most 15 in order to demonstrate increased safety with functional mobility. LTG Duration Met - 12.32 Two Impairment Increased falls risk per Rodriguez (36/56) and DGI () scores Meat Manager Goal (LTG) Pt to increase Rodriguez score by at least 10 points to 46/56 in order to demonstrate a decreased risk of falling. LTG Duration 09/27/22 One Impairment Pt does not have an appropriate home exercise program Short Term Goal (STG) Pt to be independent and compliant with an appropriate HEP STG Duration Met Assessment Summary Assessment Pt has largely met all goals, TUG score improved from 22.16 to 12.32, DGI improved from to . PT feels comfortable with current HEP, motivated to return to independent activitiy. Agreeable with discharge from skilled PT at this time. Physical Therapy Plan Frequency and Duration Frequency of Treatment 2x/Week Plan of Care Start Date 06/29/22 Plan of Care End Date 09/27/22 Therapeutic Interventions Therapeutic Interventions Balance Training,Coordination Training,Gait Training,Home Exercise Program,Manual Therapy,Neuromuscular Re- education,Patient/Caregiver Education,Self-Care/Home Management,Soft Tissue Mobilization,Therapeutic Activities,Therapeutic Exercises Discharge Physical Therapy Discharge Reasons Goals Met Next Visit Focus/Plan Next Note Type Discharge Summary
== END 2022-09-18 15:01 | disposition home or self-care (01) ==
LOC: PHYS 14:30
PROVIDERS: Absent Provider Internal Medicine; Family Provider Internal Medicine; PCP Internal Medicine; Referring Provider Otolaryngology; Visit Provider Otolaryngology
DX: R26.89 Other abnormalities of gait and mobility (principal); G20 Parkinson's disease; R29.6 Repeated falls; R26.81 Unsteadiness on feet
CPT/HCPCS: 97110; 97112; 97162

== ENCOUNTER → 2023-07-19 11:10 | Outpatient (CLI) | payer OTHER, SELFPAY ==
--- NOTE | 2023-07-19 11:13 | DI.US.S_ITS ---
PROCEDURE: US SCROTUM INDICATIONS: RIGHT SCROTAL ENLARGMENT TECHNIQUE: Real-time scanning was performed of the scrotum and testicles, with image documentation. Color and pulse Doppler interrogation was performed of both testicles. COMPARISON: None. FINDINGS: Right: Testicle is normal in size at 4.1 x 2.3 x 2.5 cm, and homogenous in echotexture. Epididymis is normal in overall size and morphology. No varicocele. There is a moderate right hydrocele with scattered internal echoes. Overlying scrotal skin is normal in thickness. Left: Testicle is normal in size at 3.2 x 1.5 x 2.1 cm, and homogeneous in echotexture. Epididymis is normal in overall size and morphology. There is a 5 mm left epididymal head cyst. No varicocele. There is a small left varicocele. Overlying scrotal skin is normal in thickness. Doppler: Color and pulse Doppler demonstrate normal and symmetric arterial flow in both testicles. IMPRESSION: 1. Moderate right hydrocele. 2. Small left hydrocele. 3. Small left epididymal head cyst. Dictated by: Swati Lazcano M.D. on 07/19/2023 at 13:27 Approved by: Swati Lazcano M.D. on 07/19/2023 at 13:29
== END ==
PROVIDERS: Family Provider Internal Medicine; PCP Student in an Organized Health Care Education/Training Program; Referring Provider Physician Assistant; Visit Provider Physician Assistant
DX: N50.89 Other specified disorders of the male genital organs (principal); N43.3 Hydrocele, unspecified; N50.3 Cyst of epididymis
CPT/HCPCS: 76870; 93975

== ENCOUNTER → 2024-10-14 10:23 | Outpatient (CLI) | payer OTHER, SELFPAY ==
--- NOTE | 2024-10-14 10:23 | DI.ECHO.S_ITS ---
[facility] : : [address] : : [place] : : [id number] : : Phone: [phone] Echocardiogram Report + + :Name: TOMMY WORLEY Study Date: 10/14/2024 Height: 64 in : :[facility] ReadingLocation: Weight: 173 lb : : Gender: Male BSA: 1.8 m2 : :: 1945 Age: 79 yrs BP: 157/69 mmHg: :Reason For Study: CAD : :Ordering Physician: JIM ALVARADO Performed By: Timi Baltazar : :Referring: JIM ALVARADO : + + Interpretation Summary 1. The left ventricular contractility is normal. Estimate ejection fraction is greater than 60% with no segmental wall motion abnormalities. No LVH. Normal diastolic function. 2. The right ventricle contractility is normal. 3. All cardiac chambers are of normal size. 4. Mild aortic insufficiency. 5. Trace to mild tricuspid regurgitation with estimated pulmonary systolic artery pressure of 33 mmHg. 6. Trace to mild pulmonic insufficiency. 7. No obvious intracardiac shunts. 8. No obvious intra neck masses or thrombi. 9. No hemodynamically significant pericardial effusion. 10. Low right-sided filling pressures. Conclusion: Normal biventricular function with mild valvular insufficiencies. Procedure: A two-dimensional transthoracic echocardiogram with color flow and Doppler was performed. The study quality was technically good. There is no prior echocardiogram noted for this patient. The patient was in normal sinus rhythm during the exam. Left Ventricle: The left ventricle is normal in size. There is normal left ventricular wall thickness. There is no ventricular septal defect visualized. The ejection fraction is estimated to be 60-65%. There are no focal wall motion abnormalities. Diastolic parameters suggest probable normal left ventricular diastolic function and normal filling pressures. Right Ventricle: The right ventricle is normal in size and function. Atria: The left atrial size is normal. Right atrial size is normal. There is no Doppler evidence for an interatrial shunt. Mitral Valve: There is mild mitral annular calcification. The mitral valve leaflets appear mildly thickened, but open well. There is trace mitral regurgitation. Aortic Valve: The aortic valve is trileaflet. The aortic valve opens well. The aortic valve is slightly calcified. There is mild aortic regurgitation. Tricuspid Valve: The tricuspid valve leaflets are thin and pliable. There is mild tricuspid regurgitation. The right ventricular systolic pressure is estimated to be at least 33 mmHg based on an estimated right atrial pressure of 3 mm Hg. Pulmonic Valve: The pulmonic valve leaflets are thin and pliable; valve motion is normal. There is mild pulmonic regurgitation. Great Vessels: The aortic root is normal size. The dimensions of the ascending aorta are normal. The pulmonary artery is normal size. The IVC is of normal diameter and collapses greater than 50% with a sniff. This suggests a low right atrial pressure of 3 mm Hg. Pericardium/ Pleura There is no pericardial effusion. There is no pleural effusion. MMode/2D Measurements & Calculations LVIDd: 4.8 cm LVOT diam: 2.0 cm LVIDs: 3.3 cm Ao root diam: 3.2 cm FS: 32.4 % asc Aorta Diam: 3.3 cm EPSS: 0.39 cm IVSd: 0.96 cm LVPWd: 0.88 cm LV carrillo. diameter/BSA (cm/m^2): 2.6 LV sys. diameter/BSA (cm/m^2): 1.8 LA A2 area: 19.8 cm2 RA long axis: 4.8 cm LA A4 area: 15.9 cm2 RA area: 12.3 cm2 LA length (vol): 4.6 cm RA vol: 27.0 ml LA vol: 57.4 ml RA : 14.7 ml/m2 LA vol index: 31.2 ml/m2 IVC diam: 1.2 cm RVD1 (basal): 3.7 cm RVD2 (mid): 2.7 cm TAPSE: 1.6 cm Doppler Measurements & Calculations Ao V2 max: 136.5 cm/sec LVOT Max [place]: 88.2 cm/sec Ao V2 mean: 84.8 cm/sec LV V1 max P.1 mmHg Ao max P.5 mmHg LV V1 VTI: 20.7 cm Ao mean P.4 mmHg KWAME(I,D): 2.1 cm2 Ao V2 VTI: 32.6 cm KWAME(V,D): 2.1 cm2 sev ratio: 0.64 KWAME indexed to BSA (cm^2/m^2): 1.1 MV E max [place]: 89.2 cm/sec TR max [place]: 272.8 cm/sec MV A max [place]: 69.1 cm/sec TR max P.8 mmHg MV E/A: 1.3 PA V2 max: 153.6 cm/sec Med Peak E' [place]: 7.4 cm/sec PA V2 mean: 104.8 cm/sec E/E' med: 12.0 PA mean P.9 mmHg Lat Peak E' [place]: 9.4 cm/sec PA pr(Accel): 29.3 mmHg E/E' lat: 9.5 E/e' average: 10.7 MV dec time: 0.20 sec SV(LVOT): 68.4 ml Reading Physician:RONI
== END ==
PROVIDERS: Family Provider Internal Medicine; PCP Student in an Organized Health Care Education/Training Program; Referring Provider Internal Medicine; Visit Provider Internal Medicine
DX: I25.10 Atherosclerotic heart disease of native coronary artery without angina pectoris (principal); I08.2 Rheumatic disorders of both aortic and tricuspid valves
CPT/HCPCS: 93306

== ENCOUNTER 2025-01-01 07:17 | Emergency (ER) | payer OTHER, SELFPAY ==
[2025-01-01] VITALS (8 sets, daily range): BP systolic 109–129; BP diastolic 58–84; PULSE 57–64; RESP 16; TEMP 36.2; O2SAT 96–99; BMI 28.3
--- NOTE | 2025-01-01 07:51 | ED.FALL ---
HPI - Fall General Chief Complaint: Fall Stated Complaint: Fell and hit head , not on blood thinners Time Seen by Provider: 01/01/25 07:51 Source: patient Mode of arrival: Ambulatory History of Present Illness HPI Narrative: Patient is a 79-year-old male with a past medical history of hypertension, Parkinson's presents to the emergency department from home for evaluation of head strike/fall. Patient states that he was attempt to get out of his recliner took a few steps and lost his balance at the top of his head on a wooden TV stand. He is not on any blood thinners he is not complaining of any other pain or injury. He was able to stand bear weight ambulate immediately after. He denies any other injuries. He is up-to-date on his tetanus Related Data Home Medications ?Medication ?Instructions ?Recorded ?Confirmed aspirin 81 mg tablet,delayed 81 mg PO QDAY ##0 09/03/16 01/01/25 release atorvastatin 80 mg tablet (Lipitor) 80 mg PO HS ##0 09/03/16 01/01/25 cholecalciferol (vitamin D3) 50 2,000 iu PO QDAY ##0 09/03/16 01/01/25 mcg (2,000 unit) capsule (Vitamin D3) escitalopram oxalate 10 mg tablet 10 mg PO QDAY ##0 09/03/16 01/01/25 (Lexapro) lansoprazole 30 mg capsule,delayed 30 mg PO DAILY ##0 09/03/16 01/01/25 release (Prevacid) lisinopril 10 mg tablet 10 mg PO QDAY ##0 09/03/16 01/01/25 methotrexate sodium 2.5 mg tablet ##0 09/03/16 07/15/24 metoprolol tartrate 50 mg tablet 50 mg PO BID ##0 09/03/16 01/01/25 multivitamin (Multiple Vitamins 1 tab PO QDAY ##0 09/03/16 01/01/25 tablet) mirtazapine 15 mg tablet 15 mg PO DAILY 08/26/23 01/01/25 sildenafil (pulm.hypertension) 20 20 mg PO TID 08/26/23 01/01/25 mg tablet buspirone 5 mg tablet 5 mg PO BID 01/01/25 01/01/25 carbidopa 25 mg-levodopa 100 mg 2 tab PO .q5hr 01/01/25 01/01/25 tablet escitalopram oxalate 20 mg tablet 20 mg PO DAILY 01/01/25 01/01/25 folic acid 1 mg tablet 1 mg PO DAILY 01/01/25 01/01/25 memantine 5 mg tablet 5 mg PO BID 01/01/25 01/01/25 methotrexate sodium 25 mg/mL 25 mg SUBCUT WEEKLY 01/01/25 01/01/25 injection solution Allergies Allergy/AdvReac Type Severity Reaction Status Date / Time Penicillins (PENICILLINS) Allergy Unknown RASH ON Unverified 01/01/25 07:20 FACE Review of Systems Review of Systems Narrative: General: Denies fever, chills, weight loss HEENT: Denies headache, eye drainage, eye irritation, head trauma, sore throat, voice change Cardiovascular: Denies any chest pain, palpitations, tachycardia Respiratory: Denies any shortness of breath, cough, wheeze, stridor GI/: Denies any abdominal pain, nausea, vomiting, diarrhea, bright red blood per rectum, melanotic stools, urinary frequency, urinary retention, dysuria, hematuria MSK: Denies any joint pain, muscle pains, swelling Skin: Laceration to the top scalp Neuro: Denies any headache, lightheadedness, dizziness, fainting, weakness Psych: Denies SI/HI Patient History Medical History (Updated 01/01/25 @ 08:35 by Anuel Sharp DO) BPH w urinary obs/LUTS History of gross hematuria History of tobacco use Erectile dysfunction Hematospermia Right hydrocele Neurological disease High blood pressure Depression Coronary heart disease Hx of chest pain Hx of acute arthritis Surgical History History of appendectomy Family History Mother Stroke Hyperlipidemia Hypertension Social History marital status: number of children: 2 Smoking Status: Former smoker Tobacco: How many years used: 21 alcohol intake: current caffeine: Yes Smoking Status: Former smoker Exam Narrative Exam Narrative: General: Cooperative, well-developed, not in acute distress HEENT: 2 cm superficial laceration noted to the top of the scalp, not actively bleeding PERRLA, normal sclera, eyelids normal Neck: Active full range of motion, atraumatic Chest: Normal to inspection, negative crepitus, no overlying erythema ecchymosis Respiratory: Normal respiratory effort, not in acute respiratory distress, clear to auscultation bilaterally negative cough, wheeze, tachypnea, rhonchi, rales Cardiology: Regular rate rhythm negative gallop, murmur, rubs GI/: No tenderness to palpation, soft, non rigid, normal to inspection, exam deferred MSK: Full active range of motion in all 4 extremities, atraumatic, no tenderness to palpation of any bony prominences Skin: No rashes or lesions noted Neuro: Alert awake oriented x3, moves all 4 extremities spontaneously, cranial nerves intact, able to answer all questions appropriately follows commands appropriately Psych: Cooperative, negative suicidal or homicidal ideations Initial Vital Signs Initial Vital Signs: Vital Signs Temperature 97.2 F L 01/01/25 07:26 Pulse Rate 60 01/01/25 07:26 Respiratory Rate 16 01/01/25 07:26 Blood Pressure 109/84 01/01/25 07:26 Pulse Oximetry 98 01/01/25 07:26 Oxygen Delivery Method Room Air 01/01/25 07:26 Procedures Laceration Repair Laceration 1: Time of procedure: 08:04 Site: scalp Size (cm): 1.5 Description: linear Depth: simple, single layer Skin layer closed with: dermabond Course Orders Ordered: ED Orders 01/01/25 07:58 CT cervical spine wo con Stat CT head/brain wo con Stat Vital Signs Vital signs: Vital Signs - 8 hr 01/01/25 07:26 Temperature 97.2 F L Pulse Rate 60 Respiratory Rate 16 Blood Pressure 109/84 Pulse Oximetry 98 Oxygen Delivery Method Room Air MDM - Fall Differential Diagnosis Differential diagnosis: Likely other (Closed head injury, laceration, abrasion, fracture) Imaging Data CT scan - head: Radiologist's Impression: [address] [address] [address] Scan Report Signed Patient: Krishna Haskins MR#: [id number] : 1945 Acct:[id number] Age/Sex: 79 / M Date of Service: 01/01/25 Loc: ED Accession Number: [id number] Procedure: CT head/brain wo con Ordering Provider: Anuel Sharp D.O. PROCEDURE: CT HEAD/BRAIN WO CON INDICATIONS: Trauma TECHNIQUE: Noncontrast 4.5 mm thick angled axial sections acquired from the foramen magnum to the vertex, with coronal and sagittal reformats. For radiation dose reduction, the following was used: automated exposure control, adjustment of mA and/or kV according to patient size. COMPARISON: None. FINDINGS: Image quality: Diagnostic. CSF spaces: Basal cisterns are patent. No extra-axial fluid collections. The ventricles are symmetric in size and shape. Brain: No acute intracranial hemorrhage or mass effect. There is cerebral volume loss, with resultant ventricular and sulcal prominence. There are periventricular and deep white matter chronic small vessel ischemic changes. There is intracranial internal carotid artery atherosclerosis. Skull and face: Mild left superior frontal scalp edema. Calvarium and visualized facial bones appear intact, without suspicious lesions. Sinuses: Mild mucosal thickening in the right anterior ethmoid air cells. The remaining visualized paranasal sinuses and the mastoid air cells are clear. IMPRESSION: 1. No acute intracranial pathology. 2. Moderate chronic microvascular ischemic changes and generalized parenchymal volume loss. CT - cervical spine: Radiologist's Impression: [place] [address] CT Scan Report Signed Patient: Krishna Haskins MR#: [id number] : 1945 Acct:[id number] Age/Sex: 79 / M Date of Service: 01/01/25 Loc: ED Accession Number: [id number] Procedure: CT cervical spine wo con Ordering Provider: Anuel Sharp D.O. PROCEDURE: CT CERVICAL SPINE WO CON INDICATIONS: trauma TECHNIQUE: Noncontrast 3 mm thick sections acquired from the skull base to the T4 level. Sagittal and coronal reformats were then constructed. For radiation dose reduction, the following was used: automated exposure control, adjustment of mA and/or kV according to patient size. COMPARISON: None. FINDINGS: Image quality: Excellent. Bones: No acute fractures or dislocations. Visualized superior ribs are intact. Multilevel disc space narrowing and degenerative endplate changes. Multilevel uncovertebral joint and facet hypertrophy. Soft tissues: Prevertebral soft tissues are normal in thickness. No paravertebral hematomas. No apical pneumothoraces. IMPRESSION: No acute displaced fracture or traumatic subluxation. MDM Narrative Medical decision making narrative: Patient is a 79-year-old male with a past medical history of Parkinson's, hyper tension, emptying from home for evaluation of mechanical trip and fall. Patient states he was getting out of his recliner took a few steps states that he would normally she will falls and fell forward, did hit his head on top of a night stand, denies any blood thinners denies any other injuries. No LOC. he states that he was able to stand bear weight ambulate after this happened. On exam patient without any bony tenderness to palpation, does have a 1.5 cm laceration to the top of the scalp, this was closed with Dermabond. Patient had CT scan of the head and neck without any acute fractures. Patient will be discharged home with outpatient follow up was given strict return precautions verbalized understanding of this and agrees to being discharged home with outpatient follow up Discharge Plan Departure Patient Disposition: Home Clinical Impression: Closed head injury, Laceration of scalp Instructions: DI for Laceration Repair-Skin Glue, DI for Closed Head Injury Activity Restrictions/Additional Instructions: Please follow up with your primary care doctor as needed Please read the discharge instructions sheet carefully and bring all papers to all doctor follow-up visits, as it may contain information that your doctor may want to see. Disease processes change and evolve, if your symptoms worsen or if you develop any new symptoms that are concerning to you please return for evaluation. Your evaluation today does not show any evidence of any life-threatening/serious illnesses requiring admission to the hospital or surgery. Please follow-up with your doctor for re-evaluation in approximately 1 day. Seek immediate medical attention for any worrisome symptoms. *If you do not have a primary care provider please contact [facility] Resource line at [phone]. They will ask some questions about your medical history and help get you set up with a doctor in the community. Prescriptions: No Action atorvastatin [Lipitor] 80 MG tablet 80 mg PO HS Qty: 0 lisinopril 10 MG tablet 10 mg PO QDAY Qty: 0 metoprolol tartrate 50 MG tablet 50 mg PO BID Qty: 0 multivitamin [Multiple Vitamins] 1 EACH tablet 1 tab PO QDAY Qty: 0 lansoprazole [Prevacid] 30 MG capsule,delayed release(DR/EC) 30 mg PO DAILY Qty: 0 escitalopram oxalate [Lexapro] 10 MG tablet 10 mg PO QDAY Qty: 0 aspirin 81 MG tablet,delayed release (DR/EC) 81 mg PO QDAY Qty: 0 cholecalciferol (vitamin D3) [Vitamin D3] 2,000 UNIT capsule 2,000 iu PO QDAY Qty: 0 methotrexate sodium 2.5 mg tablet Qty: 0 buspirone 5 mg tablet 5 mg PO BID methotrexate sodium 25 mg/mL solution 25 mg SUBCUT WEEKLY Patient Comments: [NO ORIGINAL SIG] carbidopa-levodopa 25-100 mg tablet 2 tab PO .q5hr folic acid 1 mg tablet 1 mg PO DAILY escitalopram oxalate 20 mg tablet 20 mg PO DAILY memantine 5 mg tablet 5 mg PO BID sildenafil (pulm.hypertension) 20 mg tablet 20 mg PO TID Rx Instructions: administer doses at least 4-6 hours apart mirtazapine 15 mg tablet 15 mg PO DAILY Referrals: Meron Gutierrez, [facility] [Primary Care Provider, Medical] Stand Alone Forms: Patient Portal/API
--- NOTE | 2025-01-01 07:58 | DI.CT.S_ITS ---
PROCEDURE: CT CERVICAL SPINE WO CON INDICATIONS: trauma TECHNIQUE: Noncontrast 3 mm thick sections acquired from the skull base to the T4 level. Sagittal and coronal reformats were then constructed. For radiation dose reduction, the following was used: automated exposure control, adjustment of mA and/or kV according to patient size. COMPARISON: None. FINDINGS: Image quality: Excellent. Bones: No acute fractures or dislocations. Visualized superior ribs are intact. Multilevel disc space narrowing and degenerative endplate changes. Multilevel uncovertebral joint and facet hypertrophy. Soft tissues: Prevertebral soft tissues are normal in thickness. No paravertebral hematomas. No apical pneumothoraces. IMPRESSION: No acute displaced fracture or traumatic subluxation. Approved by: Paul Jung M.D. on 01/01/2025 at 8:46
--- NOTE | 2025-01-01 07:58 | DI.CT.S_ITS ---
PROCEDURE: CT HEAD/BRAIN WO CON INDICATIONS: Trauma TECHNIQUE: Noncontrast 4.5 mm thick angled axial sections acquired from the foramen magnum to the vertex, with coronal and sagittal reformats. For radiation dose reduction, the following was used: automated exposure control, adjustment of mA and/or kV according to patient size. COMPARISON: None. FINDINGS: Image quality: Diagnostic. CSF spaces: Basal cisterns are patent. No extra-axial fluid collections. The ventricles are symmetric in size and shape. Brain: No acute intracranial hemorrhage or mass effect. There is cerebral volume loss, with resultant ventricular and sulcal prominence. There are periventricular and deep white matter chronic small vessel ischemic changes. There is intracranial internal carotid artery atherosclerosis. Skull and face: Mild left superior frontal scalp edema. Calvarium and visualized facial bones appear intact, without suspicious lesions. Sinuses: Mild mucosal thickening in the right anterior ethmoid air cells. The remaining visualized paranasal sinuses and the mastoid air cells are clear. IMPRESSION: 1. No acute intracranial pathology. 2. Moderate chronic microvascular ischemic changes and generalized parenchymal volume loss. Approved by: Paul Jung M.D. on 01/01/2025 at 8:43
== END 2025-01-01 09:14 | disposition home or self-care (01) ==
PROVIDERS: Emergency Provider Student in an Organized Health Care Education/Training Program; Family Provider Internal Medicine; PCP Student in an Organized Health Care Education/Training Program
DX: S09.90XA Unspecified injury of head, initial encounter (principal); S01.01XA Laceration without foreign body of scalp, initial encounter; W18.09XA Striking against other object with subsequent fall, initial encounter; G20.A1 Parkinson's disease without dyskinesia, without mention of fluctuations
CPT/HCPCS: 12001; 70450; 72125; 99283; 99284

== ENCOUNTER → 2025-01-20 14:38 | Outpatient (CLI) | payer OTHER, SELFPAY | PROVIDERS: Family Provider Internal Medicine; PCP Student in an Organized Health Care Education/Training Program; Referring Provider Urology; Visit Provider Urology | DX: Z12.5 Encounter for screening for malignant neoplasm of prostate (principal) | CPT/HCPCS: 36415; G0103 ==